=== PATIENT | male | born 1960 | race Caucasian/White ===

== ENCOUNTER 2024-10-14 16:42 | Emergency (ER) | payer MEDICARE, OTHER, SELFPAY ==
[2024-10-14] VITALS (9 sets, daily range): BP systolic 143–194; BP diastolic 95–101; PULSE 65–73; RESP 16–20; TEMP 36.6; O2SAT 95–99
--- NOTE | ~2024-10-14 | XR_ITS ---
EXAMINATION: XR chest 2V Exam Date/Time: 10/14/2024 17:40 CDT HISTORY: dizziness Comparison: None. RESULT: Lines, tubes, and devices: Median sternotomy wires. The inferior wire is fractured, without signific ant displacement. Lungs and pleura: No focal consolidation, pleural effusion, or pneumothorax. Hemidiaphragm flattenin g as can be seen with emphysematous change. Cardiomediastinal silhouette: Stable. Other: No acute osseous or upper abdominal finding. IMPRESSION: No acute cardiopulmonary process. Reviewed, dictated and finalized at location K.
--- OUTSIDE RECORDS SUMMARY | 2024-10-14 16:44 | XMS_ITS | Clinical Summary ---
Author Organization [facility] Address [address] [place] [address] Care Team Providers Care Data Programmer Name Role Phone Eduard Chester Primary Care Provide r Eric Garcia MD Unavailable [phone] Nicanor Morris MD Unavailable [phone] Tyler Nicholas MD Unavailable [phone] Allergies Active Allergy Reactions Criticality Noted Date Comments Atorvastatin Other (See comments) Low 06/24/2016 Severe soreness Medications cholecalciferol (VITAMIN D-3) 5,000 unit tabletIndicatio ns:Prevention of Vitamin D Deficiency Take 1 tablet (5,000 Units total) by mouth every morning 7 Active cyanocobalamin (Vitamin B-12) 1,000 mcg tabletIndicatio ns:Prevention of Vitamin B12 Deficiency Take 1 tablet (1,000 mcg total) by mouth every morning 7 Active omeprazole (PriLOSEC) 20 mg capsuleIndicati ons:reflux Take 1 capsule (20 mg total) by mouth every morning Active metoprolol XL (TOPROL-XL) 50 mg extended release tabletIndicatio ns:hypertension Take 1 tablet (50 mg total) by mouth every morning Active coenzyme Q10 200 mg capsuleIndicati ons:supplement Take 1 capsule (200 mg total) by mouth every morning With cinnamon 1000mg Active MAGNESIUM AMINO ACID CHELATE ORALIndications :supplement Take 400 mg by mouth every morning Active ibuprofen 200 mg tab/cap Take 2 tablet/capsule (400 mg total) by mouth every 6 (six) hours as needed for pain Active acetaminophen ER (TYLENOL) 650 mg 8 hr tablet Take 1 tablet (650 mg total) by mouth every 8 (eight) hours as needed for pain or headaches Active loratadine (CLARITIN) 10 mg tabletIndicatio ns:Allergic Rhinitis Take 1 tablet (10 mg total) by mouth every morning Active rosuvastatin (CRESTOR) 10 mg tablet Take 1 tablet (10 mg total) by mouth daily Active aspirin 325 mg tablet Take 1 tablet (325 mg total) by mouth daily Active Active Problems Problem Noted Date Diagnosed Date Gross hematuria 06/20/2021 Prostate cancer 04/06/2021 Cancer Staging:Clinical:Stage IIC(cT2a, cN0, cM0, PSA: 5.5, Grade Group: 3) - Signed by Eric Garcia MD on 04/06/2021 Gastroesophageal reflux disease 04/21/2020 Paroxysmal A-fib 04/21/2020 Atherosclerosis of coronary artery 12/12/2017 Dyslipidemia 12/12/2017 Hyperglycemia 12/12/2017 Vitamin D deficiency 12/12/2017 Essential hypertension 06/26/2016 Hypercholesterolemia 06/26/2016 Resolved Problems Problem Noted Date Diagnosed Date Resolved Date Right inguinal hernia 12/16/20212021 Encounters Date Type Department Care Team Description 07/30/2024 8:00 AM CDT Office Visit [facility] Neuro Muscle [address] [facility] 6th [place] [address] [place] [address] Chucho Leone MD Polyneuropathy, peripheral sensorimotor axonal (Primary Dx) from Last 3 Months Immunizations Immunization Administration Dates Next Due Influenza, Unspecified 01/27/2021 Surgical History Surgery Date Site/Laterality Comments OTHER SURGICAL HISTORY 01/27/2008 - 02/25/2008 heart bypass CORONARY ARTERY BYPASS GRAFT 01/31/2008 COLECTOMY 12/26/2013 - 01/25/2014 CARDIAC CATHETERIZATION COLONOSCOPY HERNIA REPAIR 02/25/2019 - 03/27/2019 inguinal EYE SURGERY BIOPSY prostate ASPIRATION OF ABSCESS HEMATO MA CYST 07/27/2021 N/A PROSTATECTOMY Medical History Medical History Date Comments Hypertension High cholesterol Prostate cancer (HCC) 01/2021 GERD (gastroesophageal reflux disease) Hyperlipidemia Hx of senior care use of blood thinners asa, eliquis Acute detachment of retina resol [place] see surgery Prediabetes Headache especially when not eating Family History Medical History Relation Name Comments Heart attack Maternal Grandfather Anesthesia problems Neg Hx Relation Name Status Comments Father Maternal Grandfather Mother Social History Tobacco Use Types Packs/Day Years Used Date Smoking Tobacco: Never Smokeless Tobacco: Never Tobacco Cessation:Counseling Given: Not Answered Alcohol Use Standard Drinks/Week Comments Yes 0 (1 standard drink = 0.6 oz pur e alcohol) socially Social Connection and Isolation Panel [NHANES] A nswer Date Recorded In a typical week, how many times do you talk on the phone with family, friends, or neighbors? Three times a week 06/23/19 How often do you get togethe r with friends or relatives? Twice a week 06/22/2021 How often do you attend chur ch or amish services? 1 to 4 times per year 06/22/2021 Do you belong to any clubs o r organizations such as tenriism groups, unions, fraternal or athletic groups, or school groups? No 06/22/2021 How often do you attend meet ings of the clubs or organizations you belong to? Never 06/22/2021 Are you , , di vorced, , never , or living with a partner? 06/22/2021 AUDIT-C Answer Date Recorded Q1: How often do you have a drink containing alc ohol? Monthly or less 12/30/2021 Q2: How many drinks containi ng alcohol do you have on a typical day when you are drinking? 1 or 2 12/30/2021 Q3: How often do you have si x or more drinks on one occasion? Never 12/30/2021 Overall Financial Resource Strain (CARDIA) Answe r Date Recorded How hard is it for you to pa y for the very basics like food, housing, medical care, and heating? Not very hard 06/22/2021 Hunger Vital Sign Answer Date Recorded Within the past 12 months, y ou worried that your food would run out before you got the money to buy more. Never true 06/23/19 22 Within the past 12 months, t he food you bought just didn't last and you didn't have money to get more. Never true 06/22/2021 PRAPARE - Transportation Answer Date Re corded In the past 12 months, has l ack of transportation kept you from medical appointments or from getting medications? No 05/27 In the past 12 months, has l ack of transportation kept you from meetings, work, or from getting things needed for daily living? 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 Gender Identity Male 04/28/2021 6:10 AM MEDICAL PROGRAM SPECIALIST Sexual Orientation Not on file Obstetrics History Last Filed Vital Signs Vital Sign Reading Time Taken Comments Blood Pressure 167/94 07/30/2024 8:07 AM CDT Pulse 70 07/30/2024 8:07 AM CDT Temperature 36.4 C (97.5 F) 12/30/2021 11:40 AM CDT Respiratory Rate 18 12/30/2021 2:30 PM CDT Oxygen Saturation 94% 12/30/2021 2:30 PM CDT Inhaled Oxygen Concentration - - Weight 112.5 kg (248 lb) 07/30/2024 8:07 AM CDT Height 193 cm (6' 4) 07/30/2024 8:07 AM CDT Body Mass Index 30.19 07/30/2024 8:07 AM CDT Plan of Treatment Health Maintenance Due Date Last Done Comments Colon Cancer Screening-Colonoscopy 1959 Depression Screening 1959 Hepatitis C Screening 1959 Hepatitis B Screening 1977 Pneumococcal vaccine 65+ (2 of 2 - PCV) 10/14/2020 10/15/2019 Fall Risk Assessment 12/30/2022 12/30/2021 Prostate Cancer Screening-PSA 10/14/2023, 07/14/2021, 04/06/2021 Covid-19 Vaccine ( - 2023-2 5 season) 2023 01/27/2021, 06/01/2020, 05/11/2020 Well Visit 65+ 2024 Influenza Vaccine (Season Ended) 2024 04/25/2023, 02/24/2022, 01/27/2021, Additional history exists DTaP/Tdap/Td Vaccine (2 - Td or Tdap) 10/14/2029 10/15/2019 Zoster Vaccine Completed 09/06/2020, 03/11/2020 Medical Devices Implanted Type Area Toll Test Worker Device Identifier Shelf Expiration Date Model / Serial / Lot [employer]/C R Bard 6x3in Large Pore Knit Monofilament Smooth [place] [id number] - Sn/A - [id number] Implanted:Qty: 1 on 12/30/2021 by Lorin Longoria MD at [facility] Mesh Right: Inguinal [employer]/C R Bard [id number] 03/24/2026 [id number] / N/A / [id number] Wires Sternum Procedures Procedure Name Priority Date/Time Associated Diagnosis Comments PSA DIAGNOSTIC Routine 10/13/2021 8:59 AM CDT Malignant neoplasm of prostate (HCC) from Last 3 Months or Most Recently Relevant to Health Maintenance Results * PSA diagnostic (10/13/2021 8:59 AM CDT) PSA-Total <0.10 <=5.40 ng/mL [facility]IA [facility] Comment: Interpretive Data AGE SEX REFERENCE INTERVAL 0 minutes-150 years Female None 0 minutes-49 years Male None 50-59 years Male 0-3.90 60-69 years Male 0-5.40 70-79 years Male 0-6.20 80-150 years Male 0-6.20 The Abhijit PSA Total assay procedure was used. Results from different manufacturers or methods may not be comparable. Serial testing should be performed using the same method. Current interpretive data last revised 21. Blood 10/13/2021 8:59 AM CDT 10/13/2021 9:21 AM CDT us Tyler Nicholas MD LAB BLOOD ORDERABLES Final Resu lt [facility] [address] [facility] [address] from Last 3 Months or Most Recently Relevant to Health Maintenance Insurance MEDICARE [facility] CHOICE PRF PPO [place] [facility] Advance Directives For more information, please contact: [phone] Documents on File Type Date Recorded Patient Field Software Engineer Expl anation ADVANCE DIRECTIVE 01/17/2014 12:00 AM [facility] ER OF ANALYTICAL STRATEGIST FINANCIAL/MEDICAL * Full Code (Latest Code Status on File) Date Activated Date Inactivated Comments 12/30/2021 11:13 AM 12/30/2021 7:23 PM * Full Code Date Activated Date Inactivated Comments 06/20/2021 7:57 PM 06/22/2021 8:48 PM * Full Code Date Activated Date Inactivated Comments 06/08/2021 1:51 PM 06/09/2021 5:56 PM Care Teams Data Programmer Relationship Specialty Start Date End Date Eduard Chester DO [facility] [place] [address] PCP - General Family Medicine 02/26/21 Eric Garcia MD [address] [place] [address] Radiation Oncologist Radiation Oncology 04/06/21 Nicanor Morris MD [address] [address] Referring Physician Cardiovascular Disease 04/20/21 Tyler Nicholas MD [address] [address] Consulting Physician Urology 06/22/21
--- OUTSIDE RECORDS SUMMARY | 2024-10-14 16:44 | XMS_ITS ---
Author Organization [facility] Address [address] [place] [address] Care Team Providers Care Spare Person Name Role Phone Eduard Chester DO Primary Care Provide r Eric Garcia MD Unavailable [phone] Nicanor Morris MD Unavailable [phone] Tyler Nicholas MD Unavailable [phone] Active Problems Problem Noted Date Diagnosed Date Gross hematuria 06/20/2021 Prostate cancer 04/06/2021 Cancer Staging:Clinical:Stage IIC(cT2a, cN0, cM0, PSA: 5.5, Grade Group: 3) - Signed by Eric Garcia MD on 04/06/2021 Gastroesophageal reflux disease 04/21/2020 Paroxysmal A-fib 04/21/2020 Atherosclerosis of coronary artery 12/12/2017 Dyslipidemia 12/12/2017 Hyperglycemia 12/12/2017 Vitamin D deficiency 12/12/2017 Essential hypertension 06/26/2016 Hypercholesterolemia 06/26/2016 Current Treatment and Therapy Plans No current plan information found. Past Treatment and Therapy Plans No past plan information found. Lifetime Dose Tracking * Chemical Lifetime Dose Automatic Entry Manual Entr y Fluoro Time 0.8 minutes 0.8 minutes 0 minutes Air kerma at the reference point (Ka,r) 246 mGy 2 46 mGy 0 mGy DLP 1,679 mGycm 1,679 mGycm 0 mGycm Resolved Problems Problem Noted Date Diagnosed Date Resolved Date Right inguinal hernia 12/16/20212021
--- OUTSIDE RECORDS SUMMARY | 2024-10-14 16:44 | XMS_ITS | Referral Summary ---
Author Organization [facility] Address [address] [place] [address] Care Team Providers Care Associate Attorney Name Role Phone Eduard Chester Primary Care Provide r Eric Garcia MD Unavailable [phone] Nicanor Morris MD Unavailable [phone] Tyler Nicholas MD Unavailable [phone] Encounters Date Type Department Care Team Description 07/30/2024 8:00 AM CDT Office Visit [facility] Neuro Muscle [address] [facility] [address]th [place] [address] [place] [address] Chucho Leone MD Polyneuropathy, peripheral sensorimotor axonal (Primary Dx) from Last 3 Months Allergies Active Allergy Reactions Criticality Noted Date [...] Date Resolved Date Right inguinal hernia 12/16/20212021 Immunizations Immunization Administration Dates Next Due Influenza, Unspecified 01/27/2021 Social History Tobacco Use Types Packs/Day Years [...] often do you attend chur ch or hoahaoism services? 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 Gender Identity Male 04/28/2021 6:10 AM SUPERVISOR SLITTING AND SHIPPING Sexual Orientation Not on file Last Filed Vital Signs Vital Sign Reading [...] 07/30/2024 8:07 AM CDT Plan of Treatment Not on file Medical Devices Implanted Type Area Reversing Mill Roller Device Identifier Shelf Expiration Date Model / Serial / Lot [employer]/C R Bard 6x3in Large Pore Knit Monofilament Smooth [place] [id number] - Sn/A - [id number] Implanted:Qty: 1 on 12/30/2021 by Lorin Longoria MD at [facility] Mesh Right: Inguinal [employer]/C R Bard [id number] 03/24/2026 [id number] / N/A / [id number] Wires Sternum Procedures Procedure Name Priority Date/Time Associated Diagnosis Comments PSA DIAGNOSTIC Routine 10/13/2021 8:59 AM CDT Malignant neoplasm of prostate (HCC) from Last 3 Months or Most Recently Relevant to Health Maintenance Results * PSA diagnostic (10/13/2021 8:59 AM CDT) PSA-Total <0.10 <=5.40 ng/mL [facility] Comment: Interpretive Data AGE SEX REFERENCE INTERVAL [...] MD LAB BLOOD ORDERABLES Final Resu lt [facility] [address] [facility] [address] from Last 3 Months or Most Recently Relevant to Health Maintenance Insurance [facility]ICARE [facility] [place] [facility] [facility] CLAIMS [facility] CLAIMS Advance Directives For more information, please contact: [phone] Documents on File Type Date Recorded Patient Boiler Washer Expl anation ADVANCE DIRECTIVE 01/17/2014 12:00 AM [facility] OF OFFSHORE WIND OPERATIONS MANAGER FINANCIAL/MEDICAL * Full Code (Latest Code Status on File) Date Activated Date Inactivated Comments 12/30/2021 11:13 AM 12/30/2021 7:23 PM * Full Code Date Activated Date Inactivated Comments 06/20/2021 7:57 PM 06/22/2021 8:48 PM * Full Code Date Activated Date Inactivated Comments 06/08/2021 1:51 PM 06/09/2021 5:56 PM Care Teams Associate Attorney Relationship Specialty Start Date End Date Eduard Chester DO [address] [place] [address] PCP - General Family Medicine 02/26/21 Eric Garcia MD [address] [place] [address] Radiation Oncologist Radiation Oncology 04/06/21 Nicanor Morris MD [address] [address] Referring Physician Cardiovascular Disease 04/20/21 Tyler Nicholas MD [address] [address] Consulting Physician Urology 06/22/21
--- OUTSIDE RECORDS SUMMARY | 2024-10-14 16:44 | XMS_ITS | Clinical Summary ---
Author Organization [facility] Address [address] [place] [address] Care Team Providers Care Fraternity Adviser Name Role Phone Nicanor Morris MD Unavailable [phone] Eduard Chester DO Primary Care Provider + [facility] Unavailable [phone] Allergies Active Allergy Reactions Criticality Noted Date Comments Atorvastatin Myalgias,Other (see comment) 06/24/2016 Severe soreness Methylprednisolone GI Upset Low 08/31/2024 Bloating, cramping, upset stomach Medications cholecalciferol (VITAMIN D-3) 125 MCG (5000 UT) Tab Take 1 tablet (5,000 Units total) by mouth daily. 06/25/19 17 Active Cinnamon 500 MG Tab Take 1,000 mg by mouth daily. 06/25/19 17 Active vitamin B-12 1000 MCG tablet Take 1 tablet (1,000 mcg total) by mouth daily. 06/25/19 17 Active omeprazole (PRILOSEC) 20 MG capsule Take 1 capsule (20 mg total) by mouth daily. 90 capsule 1 04/25/19 24 Active Turmeric (QC TUMERIC COMPLEX OR) Active magnesium oxide (MAG-OX) 400 (240 Mg) MG tablet Take 1 tablet (400 mg total) by mouth daily. Active metoprolol succinate ER (TOPROL-XL) 50 MG 24 hr tabletIndication s:Essential hypertension TAKE 1 TABLET DAILY 90 tablet 3 03/13/20 24 Active aspirin 325 MG tablet Take 1 tablet (325 mg total) by mouth daily. Active Coenzyme Q10 200 MG Cap Take 200 mg by mouth daily. Active Alpha-Lipoic Acid 600 MG Tab Take 600 mg by mouth daily. Active terbinafine (LAMISIL) 1 % creamIndications :Tinea pedis of right foot Apply topically 2 (two) times daily. Apply for 1-2 weeks 42 g 09/01/19 25 Active rosuvastatin (CRESTOR) 10 MG tabletIndication s:Hypercholester olemia TAKE 1 TABLET DAILY 90 tablet 3 10/10/19 25 Active rosuvastatin (CRESTOR) 10 MG tabletIndication s:Hypercholester olemia TAKE 1 TABLET DAILY 90 tablet 1 04/30/19 25 025 Discontinued Active Problems Problem Noted Date Diagnosed Date History of colon polyps 07/12/2024 Prostate cancer ([facility]) 05/21/2024 Trigger ring finger of right hand 03/07/2024 Chest pain 03/15/2023 Paroxysmal A-fib ([facility]) 04/21/2020 BMI 30.0-30.9,adult 04/21/2020 Gastroesophageal reflux dise ase, unspecified whether esophagitis present 04/21/2020 Hyperglycemia 12/12/2017 Vitamin D deficiency 12/12/2017 Atherosclerosis of coronary artery 12/12/2017 Dyslipidemia 12/12/2017 Hypertension 12/12/2017 Essential hypertension 06/26/2016 Hypercholesterolemia 06/26/2016 CAD (coronary artery disease) Resolved Problems Problem Noted Date Diagnosed Date Resolved Date Screening for colon cancer 07/12/2024 0 07/16/2024 Screening for malignant neoplasm of colon 12/21/2023 12/26/2023 Screening for malignant neoplasm of colon 12/21/2023 06/11/2024 Hiatal hernia 01/15/2019 04/21/2020 Gastroesophageal reflux dise ase with esophagitis 06/19/2018 04/21/2020 Blood in stool 12/12/2017 04/21/2020 Encounters Date Type Department Care Team Description 10/03/2024 9:00 AM CDT Office Visit [facility], [address] [address] Nicanor Morris MD Follow Up 10/03/2024 Travel 08/31/2024 1:40 PM CDT Office Visit [facility] Family & Internal Medicine [address] [address] Eduard Chester, DO Problem (foot) (Patient c/o open sore between R 4th and 5th toes x approx 1 week. Patient states he was recently in [place] and they spent a lot of time walking, believes that may have cause it. Patient has been using medicated bandaids and has soaked in epsom salt baths. Patient states it has improved some but still wanted to get it checked. ) 08/31/2024 Travel 08/13/2024 1:00 PM CDT Office Visit [facility] Family & Internal [address] [address] Vianca Longoria FNP Ear Problem (Patient presenting to the office today for right ear problems, reported clogged, hearing disturbances, . Onset about 1 week - and his gait has been off since yesterday-he was getting concerned ) 08/13/2024 Travel from Last 3 Months Immunizations Immunization Administration Dates Next Due Fluzone 6 Months+ Quad (0.5 mL Prefilled Syringe) 04/25/2023,01/18/2020,01/15/2019 Influenza (Generic) 01/27/2021 Influenza Adult (Generic) 02/24/2022,02/13/2017 Pneumococcal (Pneumovax 23) 10/15/2019 Pneumococcal (Prevnar 20) 04/26/2022 Shingrix 09/06/2020,03/11/2020 Tdap (Adacel) 10/15/2019 Family History Medical History Relation Comments No Known Problems Daughter Alzheimers Father Arthritis Father Diabetes Father Late in life Kidney Disease Father at end of life Heart Disease Maternal Grandfather DC Maternal Grandfather Stroke Maternal Grandmother Heart Disease Mother Stroke Mother Heart Disease Paternal Grandfather No Known Problems Son 1 No Known Problems Son 2 Relation Status Comments Daughter Alive Father (Age 88) of organ failure, alzheimers Maternal Grandfather (Age 71) Maternal Grandmother (Age 99) Mother (Age 85) after min i strokes while on coumadin for many years Paternal Grandfather Son 1 Alive Son 2 Alive Social History Tobacco Use Types Packs/Day Years Used Date Smoking Tobacco: Never Smokeless Tobacco: Never Tobacco Cessation:Counseling Given: No Comments:na Alcohol Use Standard Drinks/Week Comments Not Currently 6.7 (1 standard drink = 0.6 oz p ure alcohol) Socially PHQ-2 Answer Date Recorded Patient Health Questionnaire-2 Score 0 04/06/2024 Sex and Gender Information Value Date Recorded Sex Assigned at Male 05/02/2024 8:27 AM HAND COOPER HELPER Legal Sex Male 8:52 AM CDT Gender Identity Not on file Sexual Orientation Not on file Occupation Industry Job Start Date Job End Date Not on file Not on file Not on file Not on file Last Filed Vital Signs Vital Sign Reading Time Taken Comments Blood Pressure 148/90 10/03/2024 8:43 AM CDT Pulse 69 10/03/2024 8:43 AM CDT Temperature 36.8 C (98.2 F) 08/31/2024 1:45 PM CDT Respiratory Rate 16 08/31/2024 1:45 PM CDT Oxygen Saturation 97% 10/03/2024 8:43 AM CDT Inhaled Oxygen Concentration - - Weight 111.3 kg (245 lb 6.4 oz) 10/03/2024 8:43 AM CDT Height 193 cm (6' 4) 10/03/2024 8:43 AM CDT Body Mass Index 29.87 10/03/2024 8:43 AM CDT Plan of Treatment Upcoming Encounters Date Type Department Care Team (Late st Contact Info) Description 11/12/2024 7:40 AM CDT Laboratory Only [facility] Family & Internal Medicine [address] [address] Eduard Chester DO [address] [place] [address] 11/19/2024 7:00 AM CDT Office Visit [facility] Family & Internal Medicine [facility] [address] [place] [address] Eduard Chester DO [address] [place] [address] 02/07/2025 8:30 AM HAND COOPER HELPER Office Visit [facility], [facility] [address] [place] [address] Camilo Toledo MD Three [facility]. [facility] [address] [place] [address] 03/11/2025 10:00 AM HAND COOPER HELPER Hospital Encounter [facility] [place] [address] Mu Nicholas MD 3 [facility] [address] [place] [address] 03/11/2025 10:00 AM HAND COOPER HELPER - 03/11/2025 10:30 AM HAND COOPER HELPER Surgery [facility] Endo/[place] [address] Mu Nicholas MD 3 [facility] [address] [place] [address] COLONOSCOPY SCREENING 10/07/2025 9:15 AM CDT Office Visit [facility], [facility] [address] [place] [address] Tate Sullivan NP Three [facility] [address] [place] [address] Scheduled Procedures Name Priority Associated Diagnoses Date/Ti me COLONOSCOPY SCREENING Screening for colon cancer History of colon polyps 03/11/2025 10:00 AM HAND COOPER HELPER Health Maintenance Due Date Last Done Comments RSV Immunization or 60+ Years (1 - Risk 60-74 years 1-dose series) 2019 COVID-19 Vaccine (2023-2 5 season) 2025 01/27/2021, 06/01/2020, 05/11/2020 Postponed from 11/27/2023 (Patient Refused) DTaP, Tdap and Td Vaccines ( 2 - Td or Tdap) 10/14/2029 10/15/2019 Colorectal Cancer Screening Colonoscopy (10 Years) 06/18/2034 06/18/2024, 03/28/2013 Zoster Vaccines Completed 09/06/2020, 03/11/2020 Pneumococcal Vaccine: 50+ Years Completed 04/26/2022, 10/15/2019 Hepatitis C Completed 05/14/2022 PHQ-2 (Physician [place]) Completed 04/06/2024 Meningococcal B Vaccine Aged Out No l onger eligible based on patient's age to complete this topic Meningococcal Vaccine Aged Out No shaw shaquille eligible based on patient's age to complete this topic RSV Immunizations Under 20 Months Aged Out No longer eligible b ased on patient's age to complete this topic Goals Goal Patient Goal Type Associated Problems Recent Progress Patient-Stated? Author Autogenera rey Goal Care Plan Autogenerated Problem No Joycelyn Loo [facility] Medical Devices Implanted Type Area Stone Finisher Device Identifier Shelf Expiration Date Model / Serial / Lot Resolution 360 Ultra Clip Implanted:Qty : 1 on 06/18/2024 by Mu Nicholas MD at [facility] Clip Implant N/A: Colon [id number] 12/05/2026 / [id number] / [id number] Description:ASCENDING Mesh Bard Marlex 3 X 6 [id number] - [id number] Implanted:Qty : 1 on 03/05/2019 by Bipin Rocha MD at [facility] Mesh Left: Inguinal [employer] - [employer] 07/24/2023 [id number] / / [id number] Procedures Procedure Name Priority Date/Time Associated Diagnosis Comments HEPATITIS C ANTIBODY Routine 05/14/2022 7:52 AM HAND COOPER HELPER Need for hepatitis C screening test Encounter for preventative adult health care examination COLONOSCOPY Routine 03/28/2013 12:00 AM HAND COOPER HELPER from Last 3 Months or Most Recently Relevant to Health Maintenance Results * HEPATITIS C ANTIBODY (05/14/2022 7:52 AM HAND COOPER HELPER) HEPATITIS C AB NON-REACTI VE NON-REACT FABI 05/14/2022 8:02 PM HAND COOPER HELPER [facility] Comment: ANTIBODIES TO HCV NOT DETECTED. DOES NOT EXCLUDE THE POSSIBILITY OF EXPOSURE TO HCV. 05/14/2022 7:52 AM HAND COOPER HELPER us Eduard Chester DO LABORATORY Final Re sult [facility] [address] [place] [address], [place] [phone] [id number] * Colonoscopy (03/28/2013 12:00 AM HAND COOPER HELPER) 03/28/2013 03/28/2013 Narrative [employer] TO EPIC CONVERSION - 03/28/2013 12:00 AM HAND COOPER HELPER Documented hx of procedure Procedure Note Allen Hilario MD - 01/29/2018 Documented hx of procedure Generic Conversion Md HILARIO GI PROCEDURE ORDERABLES Final Result Performing Organization Address City/[facility] Co de Phone Number [employer] TO EPIC CONVERSION from Last 3 Months or Most Recently Relevant to Health Maintenance Additional Health Concerns Active Problems Noted Date Diagnosed Date Autogenerated Problem 07/12/2024 Insurance [employer] MEDICARE Advance Directives * Full Code (Latest Code Status on File) Date Activated Date Inactivated Comments 04/04/2023 11:31 AM 04/04/2023 5:38 PM * Full Code Date Activated Date Inactivated Comments 03/15/2023 3:37 AM 03/15/2023 7:25 PM * Full Code Date Activated Date Inactivated Comments 02/02/2021 2:23 PM 02/02/2021 5:26 PM Care Teams Fraternity Adviser Relationship Specialty Start Date End Date Eduard Chester DO [address] [place] [address] PCP - General FAMILY PRACTICE 12/26/[address] [facility]. [facility] [address] [place] [address] [place] Secretary Bookkeeper CARDIOVASCULAR DISEASE 06/27/17 Bipin Rocha MD [address] [place] [address] Surgeon SURGERY 02/26/19
--- OUTSIDE RECORDS SUMMARY | 2024-10-14 16:44 | XMS_ITS | Encounter Summary ---
Author Organization [facility] Address [address] [place] [address] Care Team Providers Care Tailor Helper Name Role Phone Nicanor Morris MD Unavailable Eduard Chester DO Primary Care Provider + [facility]available [phone] Encounter Details Date Type Department Care Team (Late Contact Info) Description 06/11/2024 MyChart Message Enc [facility] Family & Internal [address] [address] [facility], [facility] Provider US results Social History Tobacco Use Types Packs/Day Years Used Date Smoking Tobacco: Never Smokeless Tobacco: Never Comments:na Alcohol Use Standard Drinks/Week Comments Not Currently 6.7 (1 standard drink = 0.6 oz p ure alcohol) Socially PHQ-2 Answer Date Recorded Patient Health Questionnaire-2 Score 0 04/06/2024 Sex and Gender Information Value Date Recorded Sex Assigned at Male 05/02/2024 8:27 AM PULP GRINDER AND BLENDER Legal Sex Male 8:52 AM CDT Gender Identity Not on file Sexual Orientation Not on file Occupation Industry Job Start Date Job End Date Not on file Not on file Not on file Not on file documented as of this encounter Plan of Treatment Upcoming Encounters Date Type Department Care Team (Late Contact Info) Description 11/12/2024 7:40 AM CDT Laboratory Only [facility] Family & Internal [address] [place] [address] Eduard Chester, DO [address] [place] [address] 11/19/2024 7:00 AM CDT Office Visit [facility] Family [facility] Medicine [facility] [address] [place] [address] Eduard Chester, DO [address] [place] [address] 02/07/2025 8:30 AM PULP GRINDER AND BLENDER Office Visit [facility] THREE [facility], [facility] [address] [place] [address] Camilo Toledo MD Three [facility]. [facility] [address] [place] [address] 03/11/2025 10:00 AM PULP GRINDER AND BLENDER Hospital Encounter [facility] [address] Mu Nicholas MD [address] [address] 03/11/2025 10:00 AM PULP GRINDER AND BLENDER - 03/11/2025 10:30 AM PULP GRINDER AND BLENDER Surgery [facility] Endo/[place] [address] Mu Nicholas MD 3 [facility] [address] [place] [address] COLONOSCOPY SCREENING 10/07/2025 9:15 AM CDT Office Visit [facility] THREE [facility], [facility] [address] [place] [address] Tate Sullivan, CHANNEL MARKETING PROGRAM MANAGER Three [facility] [address] [place] [address] Scheduled Procedures Name Priority Associated Diagnoses Date/Ti me COLONOSCOPY SCREENING Screening for colon cancer History of colon polyps 03/11/2025 10:00 AM PULP GRINDER AND BLENDER documented as of this encounter Visit Diagnoses Not on filedocumented in this encounter Additional Health Concerns Assessment Noted Time PHQ-9 Depression Total Score: 0 02/24/20 21 9:15 AM PULP GRINDER AND BLENDER documented as of this encounter Care Teams Tailor Helper Relationship Specialty Start Date End Date Eduard Chester DO [address] [place] [address] PCP - General FAMILY PRACTICE 12/26/17 Nicanor Morris MD Three [facility]. [facility] [address] [place] [address] [employer] CARDIOVASCULAR DISEASE 06/27/17 Bipin Rocha MD [address] [place] [address] Surgeon SURGERY 02/26/19 documented as of this encounter
--- OUTSIDE RECORDS SUMMARY | 2024-10-14 16:44 | XMS_ITS | Clinical Summary ---
Author Organization [facility] Address [address] [place] [address] Care Team Providers Care Director Check Name Role Phone Eduard Chester Primary Care Provider + Source Comments [facility],non-owned Affiliates and Associated Physician Practices is amultiple site organization consisting of ambulatory clinics and hospital sitesin [place], [place], [place] and [place]. This disclosure is being madepursuant to the Care Everywhere program and may not contain all information available regarding this patient. Last updated 17.[facility] Allergies No known active allergies Medications * Be aware that medications may not be up to date on this document. Alwaysverify current medications with the patient. metoprolol succinate XL 24hr (TOPROL XL) 25 MG tablet Take 25 mg by mouth once daily Active rosuvastatin (CRESTOR) 40 MG tablet Take 40 mg by mouth once daily Active aspirin (ASPIRIN) 325 MG tablet Take 325 mg by mouth once daily Active Social History Tobacco Use Types Packs/Day Years Used Date Smoking Tobacco: Never Smokeless Tobacco: Never Alcohol Use Standard Drinks/Week Comments Yes 0 (1 standard drink = 0.6 oz pur e alcohol) occasionally AUDIT-C Answer Date Recorded Q1: How often do you have a drink containing alc ohol? 2-4 times a month 10/02/2021 Q2: How many drinks containi ng alcohol do you have on a typical day when you are drinking? 1 or 2 10/02/2021 Q3: How often do you have si x or more drinks on one occasion? Never 10/02/2021 Sex and Gender Information Value Date Recorded Sex Assigned at Not on file Legal Sex Male 9:03 AM CDT Gender Identity Not on file Sexual Orientation Not on file Last Filed Vital Signs Vital Sign Reading Time Taken Comments Blood Pressure 147/88 10/02/2021 11:01 AM CDT Pulse 64 10/02/2021 11:01 AM CDT Temperature 36.8 C (98.2 F) 10/02/2021 11:01 AM CDT Respiratory Rate 16 10/02/2021 11:01 AM CDT Oxygen Saturation 97% 10/02/2021 11:01 AM CDT Inhaled Oxygen Concentration - - Weight 102.1 kg (225 lb) 10/02/2021 9:05 AM CDT Height 193 cm (6' 4) 10/02/2021 9:05 AM CDT Body Mass Index 27.39 10/02/2021 9:05 AM CDT Plan of Treatment Health Maintenance Due Date Last Done Comments COLOGUARD (AGES 45-75) - COLON CA SCREENING 1959 COLON MONITORING 1959 COLONOSCOPY - COLON CA SCREENING 1959 CT COLONOGRAPHY - COLON CA SCREENING 1959 Colorectal Cancer Screening 1959 FIT - COLON CA SCREENING 1959 FLEX SIG - COLON CA SCREENING 1959 HIV SCREENING 1974 HEPATITIS C SCREENING 02/27/1977 DTAP/TDAP/TD VACCINES (1 - Tdap) 1978 PNEUMOCOCCAL VACCINE 50+ (1 of 1 - PCV) 2009 ZOSTER VACCINE (1 of 2) 2009 COVID-19 VACCINE (4 - season) 2023 01/27/2021, 06/01/2020, 05/11/2020 DEPRESSION SCREENING 03/28/2024 INFLUENZA VACCINE (#1) 2024 , 01/18/2020, 01/15/2019, Additional history exists Respiratory Syncytial Virus (RSV) Vaccine Pt: or over 60 yrs (1 - 1-dose 75+ series) 2034 HEPATITIS B VACCINE Aged Out No longe r eligible based on patient's age to complete this topic HIB VACCINE Aged Out No longer eligi ble based on patient's age to complete this topic HPV VACCINE Aged Out No longer eligi ble based on patient's age to complete this topic MENINGOCOCCAL (Group B) VACCINE SHARED DECISION-MAKING Aged Out No longer eligible based on patient's age to complete this topic MENINGOCOCCAL GROUPS A/C/Y/W VACCINE Aged Out No longer eligible based on patient's age to complete this topic Insurance Care Teams Director Check Relationship Specialty Start Date End Date Eduard Chester DO [address] [place] [address] PCP - General Family Medicine Geriatric Medicine 10/02/21
--- OUTSIDE RECORDS SUMMARY | 2024-10-14 16:44 | XMS_ITS | Encounter Summary ---
Author Organization [facility] Address [place] [address] Care Team Providers Care Time Clock Inspector Name Role Phone Nicanor Morris MD Unavailable [phone] Eduard Chester DO Primary Care Provider + [facility] Unavailable [phone] Encounter Details Date Type Department Care Team (Late Contact Info) Description 01/12/2022 [facility] Patient Accounts [address] [place] [address] [facility] Provider Monthly Credit Card Payments Social History Tobacco Use Types Packs/Day Years Used Date Smoking Tobacco: Never Smokeless Tobacco: Never Alcohol Use Standard Drinks/Week Comments Yes 3.3 (1 standard drink = 0.6 oz p ure alcohol) PHQ-2 Answer Date Recorded PHQ-2 Score - If the patient scores above 3, please move on to questions 3-9 0 02/23/2021 Sex and Gender Information Value Date Recorded Sex Assigned at Male 05/02/2024 8:27 AM METAL WIRE TECHNICIAN Legal Sex Male 8:52 AM CDT Gender Identity Not on file Sexual Orientation Not on file Occupation Industry Job Start Date Job End Date Not on file Not on file Not on file Not on file documented as of this encounter Plan of Treatment Upcoming Encounters Date Type Department Care Team (Late Contact Info) Description 11/12/2024 7:40 AM CDT Laboratory Only [facility] Family & Internal Medicine [facility] [address] [place] [address] Eduard Chester, DO [address] [place] [address] 11/19/2024 7:00 AM CDT Office Visit [facility] [address] [place] [address] Eduard Chester, DO [address] [place] [address] 02/07/2025 8:30 AM METAL WIRE TECHNICIAN Office Visit [facility] [address] [place] [address] Camilo Toledo MD Three [facility]. [facility] [address] [place] [address] 03/11/2025 10:00 AM METAL WIRE TECHNICIAN Hospital Encounter [facility] [place] [address] Mu Nicholas MD [address] [address] 03/11/2025 10:00 AM METAL WIRE TECHNICIAN - 03/11/2025 10:30 AM METAL WIRE TECHNICIAN Surgery [facility] Endo/[place] [address] Mu Nicholas MD 3 [facility] [address] [place] [address] COLONOSCOPY SCREENING 10/07/2025 9:15 AM CDT Office [facility], [place] [address] [place] [address] Tate Sullivan, TECHNICAL PROJECT MANAGER Three [facility] [address] [place] [address] Scheduled Procedures Name Priority Associated Diagnoses Date/Ti me COLONOSCOPY SCREENING Screening for colon cancer History of colon polyps 03/11/2025 10:00 AM METAL WIRE TECHNICIAN documented as of this encounter Visit Diagnoses Not on filedocumented in this encounter Additional Health Concerns Assessment Noted Time PHQ-9 Depression Total Score: 0 02/24/20 21 9:15 AM METAL WIRE TECHNICIAN documented as of this encounter Care Teams Time Clock Inspector Relationship Specialty Start Date End Date Eduard Chester DO [address] [place] [id number] PCP - General FAMILY PRACTICE 12/26/17 Nicanor Morris MD Three [facility]. [facility] [address] [place] [address] [place] Event Planner CARDIOVASCULAR DISEASE 06/27/17 Bipin Rocha MD [address] [place] [address] Surgeon SURGERY 02/26/19 documented as of this encounter
--- NOTE | 2024-10-14 17:44 | ECG_ITS ---
Test Date: 2024-10-14 18:02:57 Measurements Intervals [place] Rate: 66 P: 30 HI: 193 QRS: 79 QRSD: 113 T: 31 QT: 397 QTc: 418 Interpretive Statements SINUS RHYTHM WITH OCCASIONAL SUPRAVENTRICULAR PREMATURE COMPLEXES No previous ECG available for comparison Electronically Signed On 10-15-2024 10:50:33 CDT by Arnulfo Clark M.D.
[2024-10-14 18:07] LABS: Hematocrit 41.5 % (42.0-52.0); Hemoglobin 13.9 g/dL (14.0-18.0); Immature Granulocyte Percent A 0.2 % (0-0.5); Lymphocytes Absolute Auto 1.28 K/mm3 (0.9-3.2); Mean Corpuscular HGB Conc 33.5 g/dl (32-36); Mean Corpuscular Hemoglobin 29.0 pg (26-34); Mean Corpuscular Volume 86.6 fl (80-100); Nucleated Red Blood Cells Absolute Auto 0.000 K/mm3 (0.0-0.012); Nucleated Red Blood Cells Perc 0.0 % (0.0-0.2); Platelet Count Result 180 k/mm3 (150-375); Red Blood Count 4.79 M/mm3 (4.6-6.20); White Blood Count 5.7 K/mm3 (4.5-10.0)
[2024-10-14 18:30] LABS: Alanine Aminotransferase 61 U/L (6-50); Albumin Level 4.6 g/dL (3.5-5.1); Alkaline Phosphatase 98 U/L (38-126); Anion Gap 8 mmol/L (4-12); Aspartate Amino Transferase 42 U/L (17-59); Bilirubin,Total 0.5 mg/dL (0.2-1.3); Blood Urea Nitrogen 21 mg/dL (9-20); Calcium 9.1 mg/dL (8.4-10.2); Carbon Dioxide 23 mmol/L (22-30); Chloride 104 mmol/L (98-107); Estimated CRCL calculation 111 ml/min; Estimated Glomerular Filt Rate > 60; Glucose 116 mg/dL (65-110); Potassium 3.7 mmol/L (3.4-5.0); Sodium 135 mmol/L (137-145); Total Protein 7.3 g/dL (6.3-8.2)
--- NOTE | 2024-10-14 19:15 | PC.NURSE ---
Assumed care of patient after receiving bedside report from ROSS Lorenzo @ [phone]
--- OUTSIDE RECORDS SUMMARY | 2024-10-14 19:16 | XMS_ITS | Clinical Summary ---
Author Organization [facility] Address [address] [place] [address] Care Team Providers Care Dry Cleaner Helper Name Role Phone Eduard Chester Primary Care Provide r Eric Garcia MD Unavailable [phone] Nicanor Morris MD Unavailable [phone] Tyler Nicholas MD Unavailable [phone] Allergies Active Allergy Reactions Criticality Noted [...] Description 07/30/2024 8:00 AM CDT Office Visit [facility] Neuro Muscle [address] [facility] 6th [place] [address] [place] [address] Chucho Leone MD Polyneuropathy, peripheral sensorimotor axonal [...] GERD (gastroesophageal reflux disease) Hyperlipidemia Hx of snf use of blood thinners asa, eliquis Acute [...] often do you attend chur ch or denominational services? 1 to 4 times per year 06/22/2021 Do you belong to any clubs o r organizations such as zoroastrian groups, unions, fraternal or athletic groups, or [...] on file Legal Sex Male 12:46 AM TOOL HARDENER Gender Identity Male 04/28/2021 6:10 AM TOOL HARDENER Sexual Orientation Not on file Obstetrics History [...] 09/06/2020, 03/11/2020 Medical Devices Implanted Type Area Hotel Or Motel Cleaning Supervisor Device Identifier Shelf Expiration Date Model / Serial / Lot Davol Inc/C R Bard 6x3in Large Pore Knit Monofilament Smooth [place] [id number] - Sn/A - [id number] Implanted:Qty: 1 on 12/30/2021 by Lorin Longoria MD at [facility] Mesh Right: Inguinal Davol Inc/C R Bard [id number] 03/24/2026 [id number] / N/A / [id number] Wires Sternum Procedures Procedure Name Priority Date/Time [...] LAB BLOOD ORDERABLES Final [facility]u lt [facility] [address] [facility]. Department [place] [address] from Last 3 Months or Most Recently Relevant to Health Maintenance Insurance MEDICARE [facility] Address: [address] [address] [place] [address] [facility] CHOICE [place]F [place] [facility] LIFE [facility] CLAIMS [facility] CLAIMS Advance Directives For more information, please contact: [phone] Documents on File Type Date Recorded Patient Self Propelled Mining Machine Operator Expl anation ADVANCE DIRECTIVE 01/17/2014 12:00 AM [facility] ER OF COMMUNICATIONS TECH FINANCIAL/MEDICAL * Full Code (Latest Code Status on File) Date Activated Date Inactivated Comments 12/30/2021 11:13 AM 12/30/2021 7:23 PM * Full Code Date Activated Date Inactivated Comments 06/20/2021 7:57 PM 06/22/2021 8:48 PM * Full Code Date Activated Date Inactivated Comments 06/08/2021 1:51 PM 06/09/2021 5:56 PM Care Teams Dry Cleaner Helper Relationship Specialty Start Date End Date Eduard Chester DO [facility] [place] [address] PCP - General Family Medicine 02/26/21 Eric Garcia MD [address] [place] [address] Radiation Oncologist Radiation Oncology 04/06/21 Nicanor Morris MD [address] [address] Referring Physician Cardiovascular Disease 04/20/21 Tyler Nicholas MD [address] [address] Consulting Physician Urology 06/22/21
--- OUTSIDE RECORDS SUMMARY | 2024-10-14 19:16 | XMS_ITS | Encounter Summary ---
Author Organization [facility] Address [address] [place] [address] Care Team Providers Care Linen Aide Name Role Phone Nicanor Morris MD Unavailable [phone] Eduard Chester DO Primary Care Provider + [facility] Center[facility] MD Unavailable [phone] Encounter Details Date Type Department Care Team (Late Contact Info) Description 06/11/2024 MyChart Message Enc [facility] Family & Internal [address] [address] [facility] Provider US results Social History Tobacco Use Types Packs/Day Years Used Date Smoking Tobacco: Never Smokeless Tobacco: Never Comments:na Alcohol Use Standard Drinks/Week Comments Not Currently 6.7 (1 standard drink = 0.6 oz p ure alcohol) Socially PHQ-2 Answer Date Recorded Patient Health Questionnaire-2 Score 0 04/06/2024 Sex and Gender Information Value Date Recorded Sex Assigned at Male 05/02/2024 8:27 AM CONSULTING SOLUTION MANAGER Legal Sex Male 8:52 AM CDT Gender Identity Not on file Sexual Orientation Not on file Occupation Industry Job Start Date Job End Date Not on file Not on file Not on file Not on file documented as of this encounter Plan of Treatment Upcoming Encounters Date Type Department Care Team (Late Contact Info) Description 11/12/2024 7:40 AM CDT Laboratory Only [facility] Family & Internal [address] [place] [address] Eduard Chester, DO [address] [place] [address] 11/19/2024 7:00 AM CDT Office Visit [facility] Family [facility] Internal Medicine [facility] [address] [place] [address] Eduard Chester, DO [address] [place] [address] 02/07/2025 8:30 AM CONSULTING SOLUTION MANAGER Office Visit [facility] THREE [facility], [facility] [address] [place] [address] Camilo Toledo MD Three [facility]. [facility] [address] [place] [address] 03/11/2025 10:00 AM CONSULTING SOLUTION MANAGER Hospital Encounter [facility] [address] Mu Nicholas MD [address] [address] 03/11/2025 10:00 AM CONSULTING SOLUTION MANAGER - 03/11/2025 10:30 AM CONSULTING SOLUTION MANAGER Surgery [facility] Endo/[place] [address] uM Nicholas MD 3 [facility] [address] [place] [address] COLONOSCOPY SCREENING 10/07/2025 9:15 AM CDT Office Visit [facility] THREE [facility], [facility] [address] [place] [address] Tate Sullivan, MEDIA MARKETING SPECIALIST Three [facility] [address] [place] [address] Scheduled Procedures Name Priority Associated Diagnoses Date/Ti me COLONOSCOPY SCREENING Screening for colon cancer History of colon polyps 03/11/2025 10:00 AM CONSULTING SOLUTION MANAGER documented as of this encounter Visit Diagnoses Not on filedocumented in this encounter Additional Health Concerns Assessment Noted Time PHQ-9 Depression Total Score: 0 02/24/20 21 9:15 AM CONSULTING SOLUTION MANAGER documented as of this encounter Care Teams Linen Aide Relationship Specialty Start Date End Date Eduard Chester DO [address] [place] [address] PCP - General FAMILY PRACTICE 12/26/17 Nicanor Morris MD Three [facility]. [facility] [address] [place] [address] [employer] Commissioner CARDIOVASCULAR DISEASE 06/27/17 Bipin Rocha MD [address] [place] [address] Surgeon SURGERY 02/26/19 documented as of this encounter
--- OUTSIDE RECORDS SUMMARY | 2024-10-14 19:16 | XMS_ITS | Referral Summary ---
Author Organization [facility] Address [address] [place] [address] Care Team Providers Care Rough Rice Grader Name Role Phone Eduard Chester Primary Care Provide r Eric Garcia MD Unavailable [phone] Nicanor Morris MD Unavailable [phone] Tyler Nicholas MD Unavailable [phone] Encounters Date Type Department Care Team Description 07/30/2024 8:00 AM CDT Office Visit [facility] Neuro Muscle [address] [facility] 6th [place] [address] [place] [address] Chucho Leone MD Polyneuropathy, peripheral [...] often do you attend chur ch or jehovah's witness services? 1 to 4 times per year [...] file Legal Sex Male 12:46 AM SUPERVISOR CARTOGRAPHY Gender Identity Male 04/28/2021 6:10 AM SUPERVISOR CARTOGRAPHY Sexual Orientation Not on file Last Filed [...] on file Medical Devices Implanted Type Area Service Counter Cashier Device Identifier Shelf Expiration Date Model / Serial / Lot Davol Inc/C R Bard 6x3in Large Pore Knit Monofilament Smooth [place] [id number] - Sn/A - [id number] Implanted:Qty: 1 on 12/30/2021 by Lorin Longoria MD at [facility] Mesh Right: Inguinal Davol Inc/C R Bard [id number] 03/24/2026 [id number] / N/A / [id number] Wires Sternum Procedures Procedure Name Priority Date/Time Associated Diagnosis Comments PSA DIAGNOSTIC Routine 10/13/2021 8:59 AM CDT Malignant neoplasm of prostate (HCC) from Last 3 Months or Most Recently Relevant to Health Maintenance Results * PSA diagnostic (10/13/2021 8:59 AM CDT) PSA-Total <0.10 <=5.40 ng/mL [facility] Comment: Interpretive Data AGE SEX REFERENCE INTERVAL [...] BLOOD ORDERABLES Final Resu lt [facility] [address] [facility] [place] [address] from Last 3 Months or Most Recently Relevant to Health Maintenance Insurance MEDICARE [facility] EM[facility]ENC[facility] [employer] [facility] CLAIMS [facility] CLAIMS Advance Directives For more information, please contact: [phone] Documents on File Type Date Recorded Patient Coil Tier Expl anation ADVANCE DIRECTIVE 01/17/2014 12:00 AM POW ER OF CONTRACT CONSULTANT FINANCIAL/MEDICAL * Full Code (Latest Code Status on File) Date Activated Date Inactivated Comments 12/30/2021 11:13 AM 12/30/2021 7:23 PM * Full Code Date Activated Date Inactivated Comments 06/20/2021 7:57 PM 06/22/2021 8:48 PM * Full Code Date Activated Date Inactivated Comments 06/08/2021 1:51 PM 06/09/2021 5:56 PM Care Teams Rough Rice Grader Relationship Specialty Start Date End Date Eduard Chester DO [address] [place] [address] PCP - General Family Medicine 02/26/21 Eric Garcia MD [address] [place] [address] Radiation Oncologist Radiation Oncology 04/06/21 Nicanor Morris MD [address] [address] Referring Physician Cardiovascular Disease 04/20/21 Tyler Nicholas MD [address] [address] Consulting Physician Urology 06/22/21
--- OUTSIDE RECORDS SUMMARY | 2024-10-14 19:16 | XMS_ITS | Clinical Summary ---
Author Organization [facility] Address [address] [facility] [place] [address] Care Team Providers Care Building Cleaner Name Role Phone Eduard Chester Primary Care Provider + Source Comments [facility],non-owned Affiliates and Associated Physician Practices is amultiple site organization consisting of ambulatory clinics and hospital sitesin [place], [place], [place] and [place]. This disclosure is being madepursuant to the Care Everywhere program and may not contain all information available regarding this patient. Last updated 17.[facility] Allergies No known active allergies Medications * [...] to complete this topic Insurance Care Teams Building Cleaner Relationship Specialty Start Date End Date Eduard Chester DO [address] [place] [address] PCP - General Family Medicine Geriatric Medicine 10/02/21
--- OUTSIDE RECORDS SUMMARY | 2024-10-14 19:16 | XMS_ITS | Encounter Summary ---
Author Organization [facility] Address [facility] [place] [address] Care Team Providers Care Core Laying Machine Operator Name Role Phone Nicanor Morris MD Unavailable [phone] Eduard Chester DO Primary Care Provider + [facility] Un[facility] [phone] Encounter Details Date Type Department Care Team (Late Contact Info) Description 01/12/[address] [facility] Patient Accounts [address] [place] [address] [facility] Provider Monthly Credit Card Payments Social History [...] Sex Assigned at Male 05/02/2024 8:27 AM RAIL SIGNAL DESIGNER Legal Sex Male 8:52 AM CDT Gender [...] [facility] Family & Internal Medicine [facility] [address] [place] [address] Eduard Chester, DO [address] [place] [address] 11/19/2024 7:00 AM CDT Office Visit [facility] Family Internal [facility] [address] [place] [address] Eduard Chester, DO [address] [place] [address] 02/07/2025 8:30 AM RAIL SIGNAL DESIGNER Office Visit [facility] THREE [facility], [facility] [address] [place] [address] Camilo Toledo MD Three [facility]. [facility] [address] [place] [address] 03/11/2025 10:00 AM RAIL SIGNAL DESIGNER Hospital Encounter [facility] [place] [address] Mu Nicholas MD [address] [address] 03/11/2025 10:00 AM RAIL SIGNAL DESIGNER - 03/11/2025 10:30 AM RAIL SIGNAL DESIGNER Surgery [facility] Endo/[place] [address] Mu Nicholas MD 3 [facility] [address] [place] [address] COLONOSCOPY SCREENING 10/07/2025 9:15 AM CDT Office Visit [place] [facility] THREE [facility], [facility] [address] [place] [address] Tate Sullivan, COSTUMER Three [facility] [address] [place] [address] Scheduled Procedures Name Priority Associated Diagnoses Date/Ti me COLONOSCOPY SCREENING Screening for colon cancer History of colon polyps 03/11/2025 10:00 AM RAIL SIGNAL DESIGNER documented as of this encounter Visit Diagnoses Not on filedocumented in this encounter Additional Health Concerns Assessment Noted Time PHQ-9 Depression Total Score: 0 02/24/20 21 9:15 AM RAIL SIGNAL DESIGNER documented as of this encounter Care Teams Core Laying Machine Operator Relationship Specialty Start Date End Date Eduard Chester DO [address] [place] [address] PCP - General FAMILY PRACTICE 12/26/17 Nicanor Morris MD Three [facility]. [facility] [address] [place] [address] Ulysses Supervisor Underwriting Clerks CARDIOVASCULAR DISEASE 06/27/17 Bipin Rocha MD [address] [place] [address] Surgeon SURGERY 02/26/19 documented as of this encounter
--- OUTSIDE RECORDS SUMMARY | 2024-10-14 19:16 | XMS_ITS | Clinical Summary ---
Author Organization [facility] Address [address] [place] [address] Care Team Providers Care Disaster Response Director Name Role Phone Nicanor Morris MD Unavailable [phone] Eduard Chester DO Primary Care Provider + [facility] Unavailable [phone] Allergies Active Allergy Reactions Criticality Noted [...] History of colon polyps 07/12/2024 Prostate cancer ([facility]) 05/21/2024 Trigger ring finger of right hand 03/07/2024 Chest pain 03/15/2023 Paroxysmal A-fib ([facility]) 04/21/2020 BMI 30.0-30.9,adult 04/21/2020 Gastroesophageal reflux dise [...] 10/03/2024 9:00 AM CDT [facility], [address] [address] Nicanor Morris MD Follow Up 10/03/2024 Travel 08/31/2024 1:40 PM CDT Office Visit [facility] Family & Internal Medicine [address] [address] Eduard Chester, DO Problem (foot) (Patient c/o open sore between R 4th and 5th toes x approx 1 week. Patient states he was recently in [place] and they spent a lot of time walking, believes that may have cause it. Patient has been using medicated bandaids and has soaked in epsom salt baths. Patient states it has improved some but still wanted to get it checked. ) 08/31/2024 Travel 08/13/2024 1:00 PM CDT Office Visit [facility] Family & Internal [address] [address] Vianca Longoria FNP Ear Problem (Patient presenting [...] end of life Heart Disease Maternal Grandfather GA Maternal Grandfather Stroke Maternal Grandmother Heart Disease [...] Sex Assigned at Male 05/02/2024 8:27 AM FREIGHT DELIVERY DRIVER Legal Sex Male 8:52 AM CDT Gender [...] Description 11/12/2024 7:40 AM CDT Laboratory Only [facility] Family & Internal Medicine [address] [address] Eduard Chester DO [address] [place] [address] 11/19/2024 7:00 AM CDT Office Visit [facility] Family & Internal Medicine [facility] [address] [place] [address] Eduard Chester DO [address] [place] [address] 02/07/2025 8:30 AM FREIGHT DELIVERY DRIVER Office Visit [place] [facility] THREE [facility] [address] [place] [address] Camilo Toledo MD Three [facility]. [facility] [address] [place] [address] 03/11/2025 10:00 AM FREIGHT DELIVERY DRIVER Hospital Encounter [facility] [place] [address] Mu Nicholas MD 3 [facility] [address] [place] [address] 03/11/2025 10:00 AM FREIGHT DELIVERY DRIVER - 03/11/2025 10:30 AM FREIGHT DELIVERY DRIVER Surgery [facility] Endo/[place] [address] Mu Nicholas MD 3 [facility] [address] [place] [address] COLONOSCOPY SCREENING 10/07/2025 9:15 AM CDT Office Visit [facility] [facility] THREE [facility], [facility] [address] [place] [address] Tate Sullivan NP Three [facility] [address] [place] [address] Scheduled Procedures Name Priority Associated Diagnoses Date/Ti me COLONOSCOPY SCREENING Screening for colon cancer History of colon polyps 03/11/2025 10:00 AM FREIGHT DELIVERY DRIVER Health Maintenance Due Date Last Done Comments [...] 10/15/2019 Hepatitis C Completed 05/14/2022 PHQ-2 (Physician [place]) Completed 04/06/2024 Meningococcal B Vaccine Aged Out [...] Care Plan Autogenerated Problem No Joycelyn Loo [facility] Medical Devices Implanted Type Area Pourer Off Device Identifier Shelf Expiration Date Model / Serial / Lot Resolution 360 Ultra Clip Implanted:Qty : 1 on 06/18/2024 by Mu Nicholas MD at [facility] Clip Implant N/A: Colon [id number] 12/05/2026 / [id number] / [id number] Description:ASCENDING Mesh Bard Marlex 3 X 6 [id number] - [id number] Implanted:Qty : 1 on 03/05/2019 by Bipin Rocha MD at [facility] Mesh Left: Inguinal DAVOL INC - DIV C R BARD INC 07/24/2023 [id number] / / [id number] Procedures Procedure Name Priority Date/Time Associated Diagnosis Comments HEPATITIS C ANTIBODY Routine 05/14/2022 7:52 AM FREIGHT DELIVERY DRIVER Need for hepatitis C screening test Encounter for preventative adult health care examination COLONOSCOPY Routine 03/28/2013 12:00 AM FREIGHT DELIVERY DRIVER from Last 3 Months or Most Recently Relevant to Health Maintenance Results * HEPATITIS C ANTIBODY (05/14/2022 7:52 AM FREIGHT DELIVERY DRIVER) HEPATITIS C AB NON-REACTI VE NON-REACT FABI 05/14/2022 8:02 PM FREIGHT DELIVERY DRIVER [facility] Comment: ANTIBODIES TO HCV NOT DETECTED. DOES NOT EXCLUDE THE POSSIBILITY OF EXPOSURE TO HCV. 05/14/2022 7:52 AM FREIGHT DELIVERY DRIVER us Eduard Chester DO LABORATORY Final Re sult [facility] [address] [place] [address], [place] [phone] [id number] * Colonoscopy (03/28/2013 12:00 AM FREIGHT DELIVERY DRIVER) 03/28/2013 03/28/2013 Narrative [facility] TO EPIC CONVERSION - 03/28/2013 12:00 AM FREIGHT DELIVERY DRIVER Documented hx of procedure Procedure Note Allen Hilario MD - 01/29/2018 Documented hx of procedure Generic Conversion Md [facility]IL[facility] GI PROCEDURE ORDERABLES Final Result Performing Organization Address City[facility] Co de Phone Number [facility] TO EPIC CONVERSION from Last 3 Months or Most Recently Relevant to Health Maintenance Additional Health Concerns Active Problems Noted Date Diagnosed Date Autogenerated Problem 07/12/2024 Insurance [employer] MEDICARE Advance Directives * Full Code (Latest Code Status on File) Date Activated Date Inactivated Comments 04/04/2023 11:31 AM 04/04/2023 5:38 PM * Full Code Date Activated Date Inactivated Comments 03/15/2023 3:37 AM 03/15/2023 7:25 PM * Full Code Date Activated Date Inactivated Comments 02/02/2021 2:23 PM 02/02/2021 5:26 PM Care Teams Disaster Response Director Relationship Specialty Start Date End Date Eduard Chester DO [address] [place] [address] PCP - General FAMILY PRACTICE 12/26/17 Nicanor Morris MD [facility]. [facility] [address] [place] [address] [place] Dental Instrument Maker CARDIOVASCULAR DISEASE 06/27/17 Bipin Rocha MD [address] [place] [address] Surgeon SURGERY 02/26/19
--- OUTSIDE RECORDS SUMMARY | 2024-10-14 19:16 | XMS_ITS ---
Author Organization [facility] Address [address] [place] [address] Care Team Providers Care Consulting It Architect Name Role Phone Eduard Chester DO Primary Care Provide r Eric Garcia MD Unavailable [phone] Nicanor Morris MD Unavailable Tyler Nicholas MD Unavailable [phone] Active Problems Problem Noted Date Diagnosed [...]
[2024-10-14] MEDS: CIPROFLOXACIN HCL 0.3% OP SOLN 2.5 ML BTL 2 DROP RIGHT EAR (19:57)
--- NOTE | 2024-10-14 19:59 | ED_ITS ---
HPI - Dizziness General Chief Complaint: Dizziness Stated Complaint: not feeling well, BP high Time Seen by Provider: 10/14/24 19:03 History of Present Illness HPI Narrative: 64-year-old male presenting to the emergency department for right ear pain and muffled hearing. Patient also started feeling some disequilibrium and feeling off balance since he went to a concert on . He states that he had some trouble hearing throughout the concert and had a symptoms start then and have been intermittent since then. Also endorses feeling like his blood pressures were elevated at home. Has a history of hypertension and takes metoprolol. Presents to the ER for evaluation. Denies any chest pain, chest pressure, neck pain, neck pressure. No abdominal pain, back pain, fever, chills. No trauma or injury. She was otherwise in his normal state of health. No history of any ENT procedures in the past. Related Data Allergies Allergy/AdvReac Type Severity Reaction Status Date / Time No Known Allergies Allergy Verified 10/14/24 19:57 Review of Systems 2 Review of Systems: As reviewed above in HPI Exam 2 Narrative: GENERAL: [Well-appearing, well-nourished, and in no acute distress.] HEAD: [Normocephalic, atraumatic.] EYES: [PERRLA and EOMI.] ENT: Right tympanic membrane has a small perforation the superior aspect, no bulging or purulent drainage, no significant redness. Contralateral tympanic membrane is clear without any signs of rupture or drainage. No mastoid tenderness or bulging of the ear. NECK: Supple. CHEST: [Clear to auscultation. No respiratory distress.] HEART: [Regular rate and rhythm]. No murmur heard. [Normal peripheral pulses.] ABDOMEN: [Soft, nondistended], [nontender], [No rigidity or guarding] EXTREMITIES: Normal range of motion. [No edema.] SKIN: Warm, dry, no rash. NEURO: [No focal deficits]. Alert and oriented [x3.] PSYCH: [Normal mood and affect.] Course Vital Signs Vital signs: Vital Signs Temperature 36.6 C 10/14/24 17:04 Pulse Rate 73 10/14/24 17:04 Respiratory Rate 16 10/14/24 17:04 Blood Pressure 185/95 H 10/14/24 17:04 Pulse Oximetry 99 10/14/24 17:04 Oxygen Delivery Room Air 10/14/24 17:04 Temperature 36.6 C 10/14/24 17:04 Pulse Rate 66 10/14/24 19:15 Respiratory Rate 20 10/14/24 19:15 Blood Pressure 156/97 H 10/14/24 19:15 Pulse Oximetry 96 10/14/24 19:15 Oxygen Delivery Room Air 10/14/24 18:08 MDM - Dizziness MDM Narrative Medical decision making narrative: 64-year-old male presenting to the emergency department for right ear pain and muffled hearing. Patient also started feeling some disequilibrium and feeling off balance since he went to a concert on . He states that he had some trouble hearing throughout the concert and had a symptoms start then and have been intermittent since then. Also endorses feeling like his blood pressures were elevated at home. Has a history of hypertension and takes metoprolol. Presents to the ER for evaluation. Denies any chest pain, chest pressure, neck pain, neck pressure. No abdominal pain, back pain, fever, chills. No trauma or injury. She was otherwise in his normal state of health. No history of any ENT procedures in the past. Right tympanic membrane has a small perforation the superior aspect, no bulging or purulent drainage, no significant redness. Contralateral tympanic membrane is clear without any signs of rupture or drainage. No mastoid tenderness or bulging of the ear. Patient is mildly hypertensive urine triaged 185/94 but this came down 156/94 without any interventions. Patient states he has a history of white coat hypertension as well. No other vital anomalies such as fever, tachycardia, tachypnea or hypoxia. Blood work was obtained including CBC, CMP, EKG and chest x-ray to make sure that there is no cardiac pathology here with his elevated blood pressures or any signs of end-organ damage. Patient is asymptomatic aside from his ear complaints which is easily explained by his small tympanic membrane perforation. He was given dexamethasone the ciprofloxacin ear drops. Workup was unremarkable, no signs of any leukocytosis or anemia. Normal platelet count. Electrolytes are unremarkable, normal BUN and creatinine, normal glucose and unremarkable LFTs. Chest x-ray shows no acute cardiopulmonary process. EKG shows normal sinus rhythm, no significant LVH. No ST segment concerns. Patient is hemodynamically stable, see symptoms will be managed with your drops upon discharge and he was sent prescriptions and referral to ENT. Patient's questions were answered he was given return precautions. Medical Records Attestation: I reviewed the patient's medical records. Lab Data Attestation: I reviewed the patient's lab results. 10/14/24 17:58 10/14/24 17:58 Labs: Lab Results 10/14/24 Range/Units 17:58 WBC 5.7 (4.5-10.0) K/mm3 RBC 4.79 (4.6-6.20) M/mm3 Hgb 13.9 L (14.0-18.0) g/dL Hct 41.5 L (42.0-52.0) % MCV 86.6 (80-100) fl MCH 29.0 (26-34) pg MCHC 33.5 (32-36) g/dl RDW 12.6 (11.5-14.5) % Plt Count 180 (150-375) k/mm3 MPV 10.1 (7.4-10.4) fl Immature Gran % (Auto) 0.2 (0-0.5) % Neut % (Auto) 66.7 (45.5-73.1) % Lymph % (Auto) 22.5 (18.3-44.2) % Braxton % (Auto) 7.9 (2.6-8.5) % Eos % (Auto) 2.3 (0-4.4) % Baso % (Auto) 0.4 (0.2-1.2) % Lymph # (Auto) 1.28 (0.9-3.2) K/mm3 Braxton # (Auto) 0.5 (0.1-0.6) K/mm3 Eos # (Auto) 0.1 (0-0.3) K/mm3 Baso # (Auto) 0.0 (0.0-0.1) K/mm3 Abs Immat Gran (auto) 0.01 (0.00-0.031) K/mm3 Absolute Neuts (auto) 3.8 (1.3-6.7) K/mm3 Absolute Nucleated RBC 0.000 (0.0-0.012) K/mm3 Nucleated RBC % 0.0 (0.0-0.2) % Sodium 135 L (137-145) mmol/L Potassium 3.7 (3.4-5.0) mmol/L Chloride 104 (98-107) mmol/L Carbon Dioxide 23 (22-30) mmol/L Anion Gap 8 (4-12) mmol/L BUN 21 H (9-20) mg/dL Creatinine 0.70 (0.7-1.3) mg/dL Estim Creat Clear Calc 111 ml/min Estimated GFR > 60 (59 - ) Glucose 116 H (65-110) mg/dL Calcium 9.1 (8.4-10.2) mg/dL Total Bilirubin 0.5 (0.2-1.3) mg/dL AST 42 (17-59) U/L ALT 61 H (6-50) U/L Alkaline Phosphatase 98 (38-126) U/L Total Protein 7.3 (6.3-8.2) g/dL Albumin 4.6 (3.5-5.1) g/dL Discharge Plan Discharge Clinical Impression: Perforated right tympanic membrane on examination, Asymptomatic hypertension Patient Disposition: Home Condition: Stable Instructions: Antibiotic Form, Ruptured Eardrum (ED), Chronic Hypertension (DC) Additional Instructions: Your right tympanic membrane has a small perforation in the superior aspect which is likely causing the majority of your symptoms. We will treat this with a combination of topical anti-inflammatory such as dexamethasone steroid drops and antibiotics for protection. Keep the area free of water and do not forcefully blow your nose or bear down excessively to prevent further damage. Follow-up will be with gear room keeper. Call your regular doctor tomorrow for blood pressure re-evaluation and management with likely starting new antihypertensive. Return with any emergent concerns at any time. Patient Language: [place] Prescriptions: New ciprofloxacin-dexamethasone 0.3-0.1 % drops,suspension 4 drp EACH EAR Q12H 7 Days Qty: 7.5 0RF Follow-up/Referrals: Óscar Mcguire MD [Physician] - 1 Week (Ruptured tympanic membrane) Henrik,DO Eduard [Primary Care Provider] - Time of Disposition: 19:45
== END 2024-10-14 20:08 | disposition home or self-care (01) ==
PROVIDERS: Emergency Medicine; Emergency Provider Student in an Organized Health Care Education/Training Program; PCP Student in an Organized Health Care Education/Training Program
DX: H72.91 Unspecified perforation of tympanic membrane, right ear (principal); I10 Essential (primary) hypertension; Z79.899 Other long term (current) drug therapy; I49.1 Atrial premature depolarization
CPT/HCPCS: 36415; 71046; 80053; 85025; 93005; 99284; A9270

== ENCOUNTER 2024-11-09 09:42 | Outpatient (CLI) | payer MEDICARE, OTHER, SELFPAY ==
--- OUTSIDE RECORDS SUMMARY | 2024-11-09 09:45 | XMS_ITS ---
Author Organization [facility] Address [address] [place] [address] Care Team Providers Care Street Light Repairer Name Role Phone Eduard Chester DO Primary Care Provide r Eric Garcia MD Unavailable [phone] Nicanor Morris MD Unavailable Tyler Nicholas MD Unavailable [phone] Active Problems Problem Noted Date Diagnosed [...]
--- OUTSIDE RECORDS SUMMARY | 2024-11-09 09:46 | XMS_ITS | Clinical Summary ---
Author Organization [facility] [employer] Address [address] [facility] [place] [address] Care Team Providers Care Homicide Squad Commanding Officer Name Role Phone Eduard Chester Primary Care Provider + Source Comments [facility] [employer],non-owned Affiliates and Associated Physician Practices is amultiple site organization consisting of ambulatory clinics and hospital sitesin [place], [place], [place] and [place]. This disclosure is being madepursuant to the Care Everywhere program and may not contain all information available regarding this patient. Last updated 17.[facility] [employer] Allergies No known active allergies Medications * [...] to complete this topic Insurance Care Teams Homicide Squad Commanding Officer Relationship Specialty Start Date End Date Eduard Chester DO [address] [place] [id number] PCP - General Family Medicine Geriatric Medicine 10/02/21
--- OUTSIDE RECORDS SUMMARY | 2024-11-09 09:46 | XMS_ITS | Clinical Summary ---
Author Organization [facility] Address [address] [place] [address] Care Team Providers Care Rodent Exterminator Name Role Phone Eduard Chester Primary Care Provide r Eric Garcia MD Unavailable [phone] Nicanor Morris MD Unavailable [phone] Tyler Nicholas MD Unavailable [phone] Allergies Active Allergy Reactions Criticality Noted [...] GERD (gastroesophageal reflux disease) Hyperlipidemia Hx of fdc use of blood thinners asa, eliquis Acute [...] alcohol) socially Social Connection and Isolation Panel Answer Date Recorded In a typical week, how many times do you talk on the phone with family, friends, or neighbors? Three times a week 06/23/19 How often do you get togethe r with friends or relatives? Twice a week 06/22/2021 How often do you attend chur or protestant services? 1 to 4 times per year 06/22/2021 Do you belong to any clubs o r organizations such as christian groups, unions, fraternal or athletic groups, or [...] on file Legal Sex Male 12:46 AM CHIEF CARDIOPULMONARY TECHNOLOGIST Gender Identity Male 04/28/2021 6:10 AM CHIEF CARDIOPULMONARY TECHNOLOGIST Sexual Orientation Not on file Obstetrics History [...] Cancer Screening-PSA 10/14/2023, 07/14/2021, 04/06/2021 Covid-19 Vaccine (2023-2 5 season) 2023 01/27/2021, 06/01/2020, 05/11/2020 Well Visit 65+ 2024 Influenza Vaccine (#1) 2024 , 02/24/2022, 01/27/2021, Additional history exists DTaP/Tdap/Td Vaccine (2 - Td or Tdap) 10/14/2029 10/15/2019 Zoster Vaccine Completed 09/06/2020, 03/11/2020 Medical Devices Implanted Type Area Human Resources Services Specialist Device Identifier Shelf Expiration Date Model / Serial / Lot [employer]/C R Bard 6x3in Large Pore Knit Monofilament Smooth [place] [id number] - Sn/A - [id number] Implanted:Qty: 1 on 12/30/2021 by Lorin Longoria MD at [facility] Mesh Right: Inguinal [employer] Bard [id number] 03/24/2026 [id number] / N/A / [id number] Wires Sternum Procedures Procedure Name Priority Date/Time Associated Diagnosis Comments PSA DIAGNOSTIC Routine 10/13/2021 8:59 AM CDT Malignant neoplasm of prostate (HCC) from Last 3 Months or Most Recently Relevant to Health Maintenance Results * PSA diagnostic (10/13/2021 8:59 AM CDT) PSA-Total <0.10 <=5.40 ng/mL [facility] Comment: Interpretive Data AGE SEX REFERENCE INTERVAL [...] LAB BLOOD ORDERABLES Final Resu lt [facility] [id number] [facility]. Department [place] [address] from Last 3 Months or Most Recently Relevant to Health Maintenance Insurance MEDICARE [facility] CLAIMS BL CHOICE PRF [place] [employer] [facility] CLAIMS [facility] CLAIMS Advance Directives For more information, please contact: [phone] Documents on File Type Date Recorded Patient Public Relations Representative Expl anation ADVANCE DIRECTIVE 01/17/2014 12:00 AM [facility] FIN[employer]CIAL/MEDICAL * Full Code (Latest Code Status on File) Date Activated Date Inactivated Comments 12/30/2021 11:13 AM 12/30/2021 7:23 PM * Full Code Date Activated Date Inactivated Comments 06/20/2021 7:57 PM 06/22/2021 8:48 PM * Full Code Date Activated Date Inactivated Comments 06/08/2021 1:51 PM 06/09/2021 5:56 PM Care Teams Rodent Exterminator Relationship Specialty Start Date End Date Eduard Chester DO [address] [place] [id number] PCP - General Family Medicine 02/26/21 Eric Garcia MD [address] [place] [address] [id number] Radiation Oncologist Radiation Oncology 04/06/21 Nicanor Morris MD [address] [id number] Referring Physician Cardiovascular Disease 04/20/21 Tyler Nicholas MD [address] [address] Consulting Physician Urology 06/22/21
== END 2024-11-09 09:43 | disposition home or self-care (01) ==
LOC: ANHAUDIO 09:42
PROVIDERS: PCP Student in an Organized Health Care Education/Training Program; Visit Provider Otolaryngology
DX: H90.41 Sensorineural hearing loss, unilateral, right ear, with unrestricted hearing on the contralateral side (principal)
CPT/HCPCS: 92557; 92567

== ENCOUNTER 2024-12-04 10:45 | Outpatient (CLI) | payer MEDICARE, OTHER, SELFPAY ==
--- OUTSIDE RECORDS SUMMARY | 2024-12-03 09:40 | XMS_ITS | Encounter Summary ---
Author Organization [facility] Address [address] [place] [address] Care Team Providers Care Manager Integrity Name Role Phone Nicanor Morris MD Unavailable [phone] Eduard Chester DO Primary Care Provider + [facility]available [phone] Reason for Referral * Imaging (Routine) - New Request Specialty Diagnoses / Procedures Referred By Contshahram t Referred To Contact RADIOLOGY Diagnoses Lung nodule seen on imaging study Procedures CT CHEST WO CON Eduard Chester DO [address] [place] [address] Phone: tel: fax: Referral ID Status Reason Start Date Expiration Date V isits Requested Visits Authorized [id number] New Request 12/03/2024 12/04/2025 1 1 Reason for Visit * Reason Comments Hypertension Hyperlipidemia Encounter Details Date Type Department Care Team (Latest Contact Info) Description 12/03/2024 9:40 AM CDT Office Visit [facility] Family & Internal Medicine [facility] [address] [place] [phone] Eduard Chester DO [address] [place] [address] Hypertension; Hyperlipidemia Social History Tobacco Use Types Packs/Day Years Used Date Smoking Tobacco: Never Smokeless Tobacco: Never Comments:na Alcohol Use Standard Drinks/Week Comments Not Currently 6.7 (1 standard drink = 0.6 oz p ure alcohol) Socially PHQ-2 Answer Date Recorded Patient Health Questionnaire-2 Score 0 04/06/2024 Sex and Gender Information Value Date Recorded Sex Assigned at Male 05/02/2024 8:27 AM OCEAN TRANSPORTATION INTERMEDIARY Legal Sex Male 8:52 AM CDT Gender Identity Not on file Sexual Orientation Not on file Occupation Industry Job Start Date Job End Date Not on file Not on file Not on file Not on file documented as of this encounter Last Filed Vital Signs Vital Sign Reading Time Taken Comments Blood Pressure 136/78 12/03/2024 10:25 AM CDT Pulse 79 12/03/2024 9:48 AM CDT Temperature 36.3 C (97.3 F) 12/03/2024 9:48 AM CDT Respiratory Rate 16 12/03/2024 9:48 AM CDT Oxygen Saturation 97% 12/03/2024 9:48 AM CDT Inhaled Oxygen Concentration - - Weight 110.8 kg (244 lb 3.2 oz) 12/03/2024 9:48 AM CDT Height 193 cm (6' 4) 12/03/2024 9:48 AM CDT Body Mass Index 29.72 12/03/2024 9:48 AM CDT documented in this encounter Progress Notes * Eduard Chester, DO - 12/03/2024 9:40 AM CDT Images from the original note were not included. GENERAL OFFICE VISIT Encounter Date: 12/03/2024 Chief Complaint: 64-year-old male presents for Hypertension and Hyperlipidemia HPI: Patient presents for follow-up on HLD. Patient has had HLD for multiple years. Current medications include rosuvastatin. Patient does not need labs drawn today. Pt had recent labs. No visits with results within 20 Day(s) from this visit. Latest known visit with results is: Laboratory Only on 11/12/2024 Component Date Value Ref Range Status HGB A1C 11/12/2024 6.2 4.5 - 6.2 % Final ESTIMATED AVG GLUCOSE 11/12/2024 131 (H) 74 - 106 MG/DL Final PSA 11/12/2024 <0.13 <4.00 NG/ML Final Comment: ASSAY PERFORMED BY [employer] METHODOLOGY USING [employer] REAGENT. PATIENT RESULTS DETERMINED BY ASSAYS FROM DIFFERENT MANUFACTURERS AND/OR BY DIFFERENT METHODS MAY NOT BE COMPARABLE. TSH 11/12/2024 2.254 0.358 - 3.740 uIU/ML Final SODIUM S/P/B 11/12/2024 142 136 - 145 MMOL/L Final POTASSIUM S/P/B 11/12/2024 4.3 3.5 - 5.1 MMOL/L Final CHLORIDE S/P/B 11/12/2024 106 98 - 107 MMOL/L Final CO2 11/12/2024 26.1 21 - 32 MMOL/L Final GLUCOSE 11/12/2024 116 (H) 70 - 99 MG/DL Final BUN 11/12/2024 20 (H) 7 - 18 MG/DL Final CREATININE S/P/B 11/12/2024 0.71 0.70 - 1.30 MG/DL Final CALCIUM S/P/B 11/12/2024 8.6 8.4 - 10.5 MG/DL Final BILIRUBIN TOTAL S/P/B 11/12/2024 0.5 0.2 - 1.0 MG/DL Final ALKALINE PHOSPHATASE S/P/B 11/12/2024 114 45 - 115 U/L Final AST 11/12/2024 27 15 - 37 U/L Final ALT 11/12/2024 55 16 - 63 U/L Final TOTAL PROTEIN S/P/B 11/12/2024 6.2 (L) 6.4 - 8.2 G/DL Final ALBUMIN S/P/B 11/12/2024 3.9 3.4 - 5.0 G/DL Final ANION GAP 11/12/2024 9.9 5 - 15 MMOL/L Final REFERENCE RANGE NOT ESTABLISHED OSMOLALITY (CALC) 11/12/2024 298 MOSM/KG Final REFERENCE RANGE NOT ESTABLISHED GFR ESTIMATE 11/12/2024 >90 >90 ML/MIN/1.73 M2 Final GFR NOTES 11/12/2024 GFR REFERENCES: Final Comment: THE ESTIMATED GFR IS CALCULATED USING THE 2020 CKD-EPI EQUATION. THE FOLLOWING CATEGORIES FOR GRADING RENAL FUNCTION ARE RECOMMENDED BY THE INTERNATIONAL SOCIETY OF NEPHROLOGY (KDIGO 2012 CLINICAL PRACTICE GUIDELINE). G1,NORMAL OR HIGH: >89 ml/min/1.73 m2 G2,MILDLY DECREASED: 60-89 ml/min/1.73 m2 G3A,MILDLY TO MODERATELY DECREASED: 45-59 ml/min/1.73 m2 G3B,MODERATELY TO SEVERELY DECREASED: 30-44 ml/min/1.73 m2 G4,SEVERELY DECREASED: 15-29 ml/min/1.73 m2 G5,KIDNEY FAILURE: <15 ml/min/1.73 m2 WBC 11/12/2024 4.73 4.00 - 10.80 x10'3/uL Final RBC 11/12/2024 4.50 4.50 - 6.10 x10'6/uL Final HGB 11/12/2024 13.0 13.0 - 18.0 G/DL Final HCT 11/12/2024 39.4 37.0 - 52.0 % Final MCV 11/12/2024 87.6 78.0 - 100.0 FL Final MCH 11/12/2024 28.9 27.0 - 31.0 PG Final MCHC 11/12/2024 33.0 33.0 - 36.0 G/DL Final RDW 11/12/2024 12.5 11.5 - 14.5 % Final PLT 11/12/2024 182 150 - 350 x10'3/uL Final MPV 11/12/2024 11.0 (H) 7.4 - 10.4 FL Final DIFFERENTIAL TYPE 11/12/2024 AUTOMATED DIFFERENTIAL Final NEUTROPHILS % 11/12/2024 65.0 % Final LYMPHOCYTES % 11/12/2024 24.9 % Final MONOCYTES % 11/12/2024 7.2 % Final EOSINOPHILS % 11/12/2024 2.3 % Final BASOPHILS % 11/12/2024 0.4 % Final IMMATURE GRANS % 11/12/2024 0.2 % Final ABS. NEUTROPHILS 11/12/2024 3.07 1.60 - 8.30 x10'3/uL Final ABS. LYMPHOCYTES 11/12/2024 1.18 0.80 - 4.70 x10'3/uL Final ABS. MONOCYTES 11/12/2024 0.34 0.00 - 1.50 x10'3/uL Final ABS. EOSINOPHILS 11/12/2024 0.11 0.00 - 0.40 x10'3/uL Final ABS. BASOPHILS 11/12/2024 0.02 0.00 - 0.20 x10'3/uL Final ABS. IMMATURE GRANULOCYTES 11/12/2024 0.01 0.00 - 0.03 x10'3/uL Final CHOLESTEROL 11/12/2024 144 <200 MG/DL Final TRIGLYCERIDES 11/12/2024 206 (H) <150 MG/DL Final HDL 11/12/2024 29 (L) >40 MG/DL Final LDL-C 11/12/2024 74 <100 MG/DL Final VLDL CALCULATION 11/12/2024 41 (H) 5 - 28 MG/DL Final CHOL/HDL RATIO 11/12/2024 5.0 (H) 0.0 - 4.0 Final LDL/HDL 11/12/2024 2.6 (H) 0.41 - 2.13 Final NON HDL CHOLESTEROL 11/12/2024 115 <140 MG/DL Final Ratio of LDL/HDL is not ideal but LDL is controlled. PSA is not detectable. A1c is elevated but notdiabetic. Anemia is no longer present. Patient presents for follow-up on essential hypertension. Current medications include Metoprolol. It is decently well controlled today. Pt came in last month for BP check, at which time it was elevated. No side effects noted from medications. Concurrent conditions include Hyperlipidemia and CAD. Pt continues to have ear issues which he is seeing ENT for this. Pt is still having dizziness and tinnitus issues that have not improved dramatically. Pt has A Fib s/p MAZE procedure 2007. Pt had ablation with Dr. Toledo on 04/04/23. Pt is now on aspirin and metoprolol. He is following with cardiology for this currently, Dr. Morris and Dr. Toledo. Pt is stable with this. Pt needs repeat imaging of CT lung from 2021; an incidental lung nodule was noted then which was likely benign but recommended repeat imaging. Review of Systems Constitutional: Negative for fever. HENT: See HPI Respiratory: Negative for shortness of breath. Cardiovascular: Negative for chest pain. Psychiatric/Behavioral: See HPI Patient Active Problem List Diagnosis CAD (coronary artery disease) Essential hypertension Hypercholesterolemia Hyperglycemia Vitamin D deficiency Atherosclerosis of coronary artery Dyslipidemia Hypertension Paroxysmal A-fib ([facility]/HCC [facility]) BMI 30.0-30.9,adult Gastroesophageal reflux disease, unspecified whether esophagitis present Chest pain Trigger ring finger of right hand Prostate cancer ([facility]/HCC HHS/HCC) History of colon polyps Past Medical History[1] Past Surgical History[2] Family History[3] Social History[4] Immunization History Administered Date(s) Administered Fluzone 6 Months+ Quad (0.5 mL Prefilled Syringe) 01/15/2019, 01/18/2020, 04/25/2023 Influenza (Generic) 01/27/2021 Influenza Adult (Generic) 02/13/2017, 02/24/2022 [employer] COVID-19 (ORIGINAL FORMULATION, PURPLE CAP) mRNA, LNP-S, PF, 30 MCG/0.3 ML DOSE 05/11/2020, 06/01/2020, 01/27/2021 Pneumococcal (Pneumovax 23) 10/15/2019 Pneumococcal (Prevnar 20) 04/26/2022 Shingrix 03/11/2020, 09/06/2020 Tdap (Adacel) 10/15/2019 Current Outpatient Medications Medication Sig Dispense Refill Alpha-Lipoic Acid 600 MG Tab Take 600 mg by mouth daily. aspirin 325 MG tablet Take 1 tablet (325 mg total) by mouth daily. cholecalciferol (VITAMIN D-3) 125 MCG (5000 UT) Tab Take 1 tablet (5,000 Units total) by mouth daily. Cinnamon 500 MG Tab Take 1,000 mg by mouth daily. Coenzyme Q10 200 MG Cap Take 200 mg by mouth daily. magnesium oxide (MAG-OX) 400 (240 Mg) MG tablet Take 1 tablet (400 mg total) by mouth daily. metoprolol succinate ER (TOPROL-XL) 100 MG 24 hr tablet Take 1 tablet (100 mg total) by mouth daily. 90 tablet 3 omeprazole (PRILOSEC) 20 MG capsule Take 1 capsule (20 mg total) by mouth daily. 90 capsule 1 rosuvastatin (CRESTOR) 10 MG tablet TAKE 1 TABLET DAILY 90 tablet 3 Turmeric (QC TUMERIC COMPLEX OR) vitamin B-12 1000 MCG tablet Take 1 tablet (1,000 mcg total) by mouth daily. terbinafine (LAMISIL) 1 % cream Apply topically 2 (two) times daily. Apply for 1-2 weeks (Patient not taking: Reported on 12/03/2024) 42 g 0 No current facility-administered medications for this visit. Review of patient's allergies indicates: Allergen Reactions Atorvastatin Myalgias and Other (see comment) Severe soreness Methylprednisolone GI Upset Bloating, cramping, upset stomach Objective: Filed Vitals: 12/03/24 0948 12/03/24 1025 BP: (!) 142/94 136/78 Pulse: 79 Resp: 16 Temp: 97.3 ??F (36.3 ??C) TempSrc: Skin SpO2: 97% Weight: 110.8 kg (244 lb 3.2 oz) Height: 1.93 m (6' 4) Physical Exam Vitals and nursing note reviewed. HENT: Head: Normocephalic and atraumatic. Right Ear: External ear normal. Left Ear: External ear normal. Eyes: Conjunctiva/sclera: Conjunctivae normal. Cardiovascular: Rate and Rhythm: Normal rate and regular rhythm. Heart sounds: Normal heart sounds. No murmur heard. No friction rub. No gallop. Pulmonary: Effort: Pulmonary effort is normal. No respiratory distress. Breath sounds: Normal breath sounds. No wheezing or rales. Abdominal: Palpations: Abdomen is soft. Tenderness: There is no abdominal tenderness. Neurological: Mental Status: He is alert. Assessment & Plan: Stephan Martinez was seen today for hypertension and hyperlipidemia. Diagnoses and all orders for this visit: Primary hypertension - metoprolol succinate ER (TOPROL-XL) 100 MG 24 hr tablet; Take 1 tablet (100 mg total) by mouth daily. Hyperlipidemia, mixed Hyperglycemia Eustachian tube dysfunction, right S/P prostatectomy Tinnitus of right ear BMI 29.0-29.9,adult Lung nodule seen on imaging study - CT CHEST WO CON; Future Discussion/Summary: Recommend lifestyle changes for A1c and elevated cholesterol. Repeat A1c in 6 months. Other labs can be repeated in 1 year. Continue f/u with all specialists. Will order CT chest. Will increase metoprolol as per above. Will have pt f/u in 6 months or sooner if needed. Pt v/u. I personally spent a total of 34 minutes on the day of the encounter. This includes apuo-oa-nmrh and keb-ymsy-zz-face time I provided on the day of the encounter & excludes time spent performing separately reportable services. Eduard Chester DO [1] Past Medical History: Diagnosis Date Anesthesia complication woke up biting at oral airway, also bit inside of lip very hard Arthritis Atrial fibrillation (CMS/HCC HHS/HCC) s/p MAZE 2007 CAD (coronary artery disease) Cancer (CMS/HCC HHS/HCC) Detached retina, right Dyslipidemia Essential hypertension GERD (gastroesophageal reflux disease) Hiatal hernia Inguinal hernia [2] Past Surgical History: Procedure Laterality Date CARDIAC CATHETERIZATION 01/2008 COLON SURGERY 01/08 COLONOSCOPY N/A 06/18/2024 COLONOSCOPY WITH REMOVAL OF ASCENDING POLYPOID MASS VIA HOT SNARE WITH CLIP PLACEMENT X 1 AND TATTOO performed by Mu Nicholas MD at [facility] GI COLONOSCOPY FLX DX W/COLLJ SPEC WHEN PFRMD CORONARY ARTERY BYPASS GRAFT 01/2008 EYE SURGERY 05/20 HAND SURGERY Right 03/30/2024 Ring finger trigger release Dr. Vick HERNIA REPAIR 03/15 KNEE SURGERY Right OTHER PROCEDURE MAZE PROSTATE SURGERY 06/16 REMV PROSTATE,PERINEAL,RADICAL TONSILLECTOMY [3] Family History Problem Relation Name Age of Onset Stroke Mother Mom Heart Disease Mother Mom Alzheimers Father Dad Kidney Disease Father Dad at end of life Diabetes Father Dad Late in life Arthritis Father Dad Stroke Maternal Grandmother Grandma [place] Maternal Grandfather Papa Heart Disease Maternal Grandfather Papa No Known Problems Daughter No Known Problems Son Heart Disease Paternal Grandfather Granddaddy No Known Problems Son [4] Social History Tobacco Use Smoking status: Never Smokeless tobacco: Never Tobacco comments: na Vaping Use Vaping status: Never Used Substance Use Topics Alcohol use: Not Currently Alcohol/week: 6.7 standard drinks of alcohol Comment: Socially Drug use: Never documented in this encounter Plan of Treatment Upcoming Encounters Date Type Department Care Team (Late st Contact Info) Description 02/08/2025 8:45 AM OCEAN TRANSPORTATION INTERMEDIARY Office Visit [facility] THREE [facility], [facility] [address] [place], [place] [phone] Camilo Toledo MD Three [facility]. [facility] [address] [place], [place] [phone] 03/11/2025 10:00 AM OCEAN TRANSPORTATION INTERMEDIARY Hospital Encounter [facility] [address] [facility] [place] [address] Mu Nicholas MD 3 [facility] [address] [place] [address] 03/11/2025 10:00 AM OCEAN TRANSPORTATION INTERMEDIARY - 03/11/2025 10:30 AM OCEAN TRANSPORTATION INTERMEDIARY Surgery [facility] [place]o/[place] [address] Mu Nicholas MD 3 [facility] [address] [place] [address] COLONOSCOPY SCREENING 06/03/2025 7:00 AM CDT Office Visit [facility] Family & Internal Medicine [facility] [address] [place] [address] Eduard Chester, [address] [place] [address] 10/07/2025 9:15 AM CDT Office Visit [facility]-Clarita'F allon [facility] [address] [place] [address] Tate Sullivan, OCCUPATIONAL SAFETY SPECIALIST Three [facility] [address] [place] [address] Scheduled Orders Name Type Priority Associated Diagnoses Orde r Schedule CT CHEST WO CON CT Routine Lung nodule seen on imaging study Expected: 12/03/2024, Expires: 12/03/2025 Scheduled Procedures Name Priority Associated Diagnoses Date/Ti me COLONOSCOPY SCREENING Screening for colon cancer History of colon polyps 03/11/2025 10:00 AM OCEAN TRANSPORTATION INTERMEDIARY documented as of this encounter Goals Goal Patient Goal Type Associated Problems Recent Progress Patient-Stated? Author Autogenera rey Goal Care Plan Autogenerated Problem No Imler, Joycelyn S, EDGE INKER UPPERS documented as of this encounter Visit Diagnoses Diagnosis History of colon polyps Personal history of colonic polyps Primary hypertension- Primary Unspecified essential hypertension Hyperlipidemia, mixed Mixed hyperlipidemia Hyperglycemia Other abnormal glucose Eustachian tube dysfunction, right S/P prostatectomy Other postprocedural status Tinnitus of right ear Unspecified tinnitus BMI 29.0-29.9,adult Body Mass Index 29.0-29.9, adult Lung nodule seen on imaging study Solitary pulmonary nodule Screening for colon cancer Special screening for malignant neoplasms, colon History of colon polyps Personal history of colonic polyps documented in this encounter Additional Health Concerns Active Problems Noted Date Diagnosed Date Autogenerated Problem 07/12/2024 Assessment Noted Time PHQ-9 Depression Total Score: 0 02/24/20 21 9:15 AM OCEAN TRANSPORTATION INTERMEDIARY documented as of this encounter Care Teams Manager Integrity Relationship Specialty Start Date End Date Eduard Chester DO [facility] [place] [address] PCP - General FAMILY PRACTICE 12/26/17 Nicanor Morris MD [address] [address] [place] Folded Cloth Taper CARDIOVASCULAR DISEASE 06/27/17 Bipin Rocha MD [address] [place] [address] Surgeon SURGERY 02/26/19 documented as of this encounter
--- OUTSIDE RECORDS SUMMARY | 2024-12-04 12:31 | XMS_ITS | Encounter Summary ---
Author Organization [facility] Address [address] [place] [address] Care Team Providers Care Infrastructure Software Engineer Name Role Phone Nicanor Morris MD Unavailable [phone] Eduard Chester DO Primary Care Provider [facility] [phone] Reason for Visit * Reason Onset Date Comments Results 12/03/2024 Encounter Details Date Type Department Care Team (Late st Contact Info) Description 12/03/2024 Results Follow-Up [facility] Medical Group Family & Internal Medicine [address] [address] Eduard Chester DO [address] [place] [address] HEMOGLOBIN, GLYCOSYLATED, PROSTATE SPECIFIC ANTIGEN,TOTAL, TSH W/REFLEX, Additional followed-up results: 3 Social History Tobacco Use Types Packs/Day Years Used Date Smoking Tobacco: Never Smokeless Tobacco: Never Comments:na Alcohol Use Standard Drinks/Week Comments Not Currently 6.7 (1 standard drink = 0.6 oz p ure alcohol) Socially PHQ-2 Answer Date Recorded Patient Health Questionnaire-2 Score 0 04/06/2024 Sex and Gender Information Value Date Recorded Sex Assigned at Male 05/02/2024 8:27 AM EDUCATIONAL INSTITUTION CURATOR Legal Sex Male 8:52 AM CDT Gender Identity Not on file Sexual Orientation Not on file Occupation Industry Job Start Date Job End Date Not on file Not on file Not on file Not on file documented as of this encounter Progress Notes * Christi Fournier RN - 12/03/2024 2:30 PM CDT Patient states that he has not been able to exercise due to tinnitus issues. He is wanting to wait another 3-6 months and recheck his levels with his pcp and see what happens then. Patient is getting injections with the ear drums with ENT and is hopeful this will resolve his tinnitus that is causing equilibrium issues. documented in this encounter Plan of Treatment Upcoming Encounters Date Type Department Care Team (Late st Contact Info) Description 02/08/2025 8:45 AM EDUCATIONAL INSTITUTION CURATOR Office Visit [facility]O'F allodestiny THREE [facility], [facility] [address] [place] [address] Camilo Toledo MD [address] [facility] [address] [place] [address] 03/11/2025 10:00 AM EDUCATIONAL INSTITUTION CURATOR Hospital Encounter [facility] ONE [facility] [place] [address] Mu Nicholas MD [address] [facility] [address] [place] [address] 03/11/2025 10:00 AM EDUCATIONAL INSTITUTION CURATOR - 03/11/2025 10:30 AM EDUCATIONAL INSTITUTION CURATOR Surgery [facility] [place] [address] Mu Nicholas MD [address] [facility] [address] [place] [address] COLONOSCOPY SCREENING 06/03/2025 7:00 AM CDT Office Visit [facility] [address] [place] [address] Eduard Chester DO [address] [place] [address] 10/07/2025 9:15 AM CDT Office Visit [facility] [address] [place] [address] Tate Sullivan NP Three [facility] [address] [place] [address] Scheduled Procedures Name Priority Associated Diagnoses Date/Ti me COLONOSCOPY SCREENING Screening for colon cancer History of colon polyps 03/11/2025 10:00 AM EDUCATIONAL INSTITUTION CURATOR documented as of this encounter Goals Goal Patient Goal Type Associated Problems Recent Progress Patient-Stated? Author Autogenera rey Goal Care Plan Autogenerated Problem No Joycelyn Loo [facility] documented as of this encounter Visit Diagnoses Not on filedocumented in this encounter Additional Health Concerns Active Problems Noted Date Diagnosed Date Autogenerated Problem 07/12/2024 Assessment Noted Time PHQ-9 Depression Total Score: 0 02/24/20 9:15 AM EDUCATIONAL INSTITUTION CURATOR documented as of this encounter Care Teams Infrastructure Software Engineer Relationship Specialty [place] [address] [place] [address] PCP - General FAMILY PRACTICE 12/26/17 Nicanor Morris MD [facility] [address] [place] [address] [place] It Support Technician CARDIOVASCULAR DISEASE 06/27/17 Bipin Rocha MD [address] [place] [address] Surgeon SURGERY 02/26/19 documented as of this encounter
--- OUTSIDE RECORDS SUMMARY | 2024-12-04 12:31 | XMS_ITS | Clinical Summary ---
Author Organization [facility] Address [address] [place] [address] Care Team Providers Care Cell Tester Name Role Phone Eduard Chester Primary Care Provide r Eric Garcia MD Unavailable [phone] Nicanor Morris MD Unavailable [phone] Tyler Nicholas MD Unavailable [phone] Allergies Active Allergy Reactions Criticality Noted [...] GERD (gastroesophageal reflux disease) Hyperlipidemia Hx of termite control service representative use of blood thinners asa, eliquis Acute [...] How often do you attend chur or anabaptist services? 1 to 4 times per year 06/22/2021 Do you belong to any clubs o r organizations such as orthodox groups, unions, fraternal or athletic groups, or [...] on file Legal Sex Male 12:46 AM RADIO DIVISION LIEUTENANT Gender Identity Male 04/28/2021 6:10 AM RADIO DIVISION LIEUTENANT Sexual Orientation Not on file Obstetrics History [...] 09/06/2020, 03/11/2020 Medical Devices Implanted Type Area Marine Architect Device Identifier Shelf Expiration Date Model / Serial / Lot [employer]/C R Bard 6x3in Large Pore Knit Monofilament Smooth [place] [id number] - Sn/A - [id number] Implanted:Qty: 1 on 12/30/2021 by Lorin Longoria MD at [facility] Mesh Right: Inguinal [employer] [id number] 03/24/2026 [id number] / N/A / [id number] Wires Sternum Procedures Procedure Name Priority Date/Time [...] BLOOD ORDERABLES Final Resu lt [facility] [address] [facility]. Department [place] [address] from Last 3 Months or Most Recently Relevant to Health Maintenance Insurance MEDICARE [facility] CLAIMS BL CHOICE PRF [place] [facility] CLAIMS [facility] CLAIMS Advance Directives For more information, please contact: [phone] Documents on File Type Date Recorded Patient Heating And Ventilating Drafter Expl anation ADVANCE DIRECTIVE 01/17/2014 12:00 AM [facility] ER OF LITIGATION COUNSEL FINANCIAL/MEDICAL * Full Code (Latest Code Status on File) Date Activated Date Inactivated Comments 12/30/2021 11:13 AM 12/30/2021 7:23 PM * Full Code Date Activated Date Inactivated Comments 06/20/2021 7:57 PM 06/22/2021 8:48 PM * Full Code Date Activated Date Inactivated Comments 06/08/2021 1:51 PM 06/09/2021 5:56 PM Care Teams Cell Tester Relationship Specialty Start Date End Date Eduard Chester DO [address] [place] [address] PCP - General Family Medicine 02/26/21 Eric Garcia MD [address] [place] [id number] Radiation Oncologist Radiation Oncology 04/06/21 Nicanor Morris MD [address] [id number] Referring Physician Cardiovascular Disease 04/20/21 Tyler Nicholas MD [address] [address] Consulting Physician Urology 06/22/21
--- OUTSIDE RECORDS SUMMARY | 2024-12-04 12:31 | XMS_ITS | Encounter Summary ---
Author Organization [facility] Address [address] [place] [address] Care Team Providers Care Technical Programs Manager Name Role Phone Nicanor Morris MD Unavailable [phone] Eduard Chester DO Primary Care Provider + [facility] Unavailable [phone] Encounter Details Date Type Department Care Team (Latest Contact Info) Description 12/03/2024 Travel Social History Tobacco Use Types Packs/Day Years Used Date Smoking Tobacco: Never Smokeless Tobacco: Never Comments:na Alcohol Use Standard Drinks/Week Comments Not Currently 6.7 (1 standard drink = 0.6 oz p ure alcohol) Socially PHQ-2 Answer Date Recorded Patient Health Questionnaire-2 Score 0 04/06/2024 Sex and Gender Information Value Date Recorded Sex Assigned at Male 05/02/2024 8:27 AM TESTING MANAGER Legal Sex Male 8:52 AM CDT Gender Identity Not on file Sexual Orientation Not on file Occupation Industry Job Start Date Job End Date Not on file Not on file Not on file Not on file documented as of this encounter Plan of Treatment Upcoming Encounters Date Type Department Care Team (Late st Contact Info) Description 02/08/2025 8:45 AM TESTING MANAGER Office Visit [facility] [place] [address] [place] [address] Camilo Toledo MD Three [facility]. [place] [address] [place] [address] 03/11/2025 10:00 AM TESTING MANAGER Hospital Encounter [facility] [place] [address] Mu Nicholas MD 3 [facility] [address] [place] [address] 03/11/2025 10:00 AM TESTING MANAGER - 03/11/2025 10:30 AM TESTING MANAGER Surgery [facility] Endo/[place] [address] Mu Nicholas MD 3 [facility] [address] [place] [address] COLONOSCOPY SCREENING 06/03/2025 7:00 AM CDT Office Visit [facility] Medical Group Family & Internal Medicine [address] [place] [address] Eduard Chester DO [address] [place] [address] 10/07/2025 9:15 AM CDT Office Visit [facility] THREE [facility] [address] [place] [address] Tate Sullivan NP Three [facility] [address] [place] [address] Scheduled Procedures Name Priority Associated Diagnoses Date/Ti me COLONOSCOPY SCREENING Screening for colon cancer History of colon polyps 03/11/2025 10:00 AM TESTING MANAGER documented as of this encounter Goals Goal [...] Total Score: 0 02/24/20 21 9:15 AM TESTING MANAGER documented as of this encounter Care Teams Technical Programs Manager Relationship Specialty Start Date End Date Eduard Chester DO [address] [place] [address] PCP - General FAMILY PRACTICE 12/26/17 Nicanor Morris MD [facility] [address] [place] [address] [place] [employer] CARDIOVASCULAR DISEASE 06/27/17 Bipin Rocha MD [facility] [place] [address] Surgeon SURGERY 02/26/19 documented as of this encounter
--- OUTSIDE RECORDS SUMMARY | 2024-12-04 12:31 | XMS_ITS ---
Author Organization [facility] Address [address] [place] [address] Care Team Providers Care Computer Network Engineer Name Role Phone Eduard Chester DO Primary Care Provide r Eric Garcia MD Unavailable [phone] Nicanor Morris MD Unavailable Tyler Nicholas MD Unavailable [phone] Active Problems Problem Noted Date Diagnosed [...]
--- OUTSIDE RECORDS SUMMARY | 2024-12-04 12:31 | XMS_ITS | Encounter Summary ---
Author Organization [facility] Address [facility] [place] [address] Care Team Providers Care Pharmacy Analyst Name Role Phone Nicanor Morris MD Unavailable Eduard Chester DO Primary Care Provider + [facility] Unavailable [phone] Encounter Details Date Type Department Care Team (Late st Contact Info) Description 01/12/2022 [facility] Patient Accounts [address] [place] [address] [facility] Provider Monthly Credit Card Payments Social History [...] Sex Assigned at Male 05/02/2024 8:27 AM SUPERVISOR FIBERGLASS BOAT ASSEMBLY Legal Sex Male 8:52 AM CDT Gender Identity Not on file Sexual Orientation Not on file Occupation Industry Job Start Date Job End Date Not on file Not on file Not on file Not on file documented as of this encounter Plan of Treatment Upcoming Encounters Date Type Department Care Team (Late st Contact Info) Description 02/08/2025 8:45 AM SUPERVISOR F[employer]ER[employer] BOAT ASSEMBLY Office Visit [facility] [address], [facility] [address] [place] [address] Camilo Toledo MD Three [facility]. [facility] [address] [place] [address] 03/11/2025 10:00 AM SUPERVISOR FIBERGLASS BOAT ASSEMBLY Hospital Encounter [facility] [place] [address] Mu Nicholas MD 3 [facility] [address] [place] [address] 03/11/2025 10:00 AM SUPERVISOR F[employer]ERGL[employer]AT ASSEMBLY - 03/11/2025 10:30 AM SUPERVISOR F[employer]ER[employer]AT ASSEMBLY Surgery [facility] [place]o/[place] [address] Mu Nicholas MD 3 [facility] [address] [place] [address] COLONOSCOPY SCREENING 06/03/2025 7:00 AM CDT Office Visit [facility] Medical Group Family & Internal Medicine - [address] [address] Eduard Chester, [address] [place] [address] 10/07/2025 9:15 AM CDT Office Visit [facility] THREE [facility], [facility] [address] [place] [address] Tate Sullivan, LIZA Three [facility] [address] [place] [address] Scheduled Procedures Name Priority Associated Diagnoses Date/Ti me COLONOSCOPY SCREENING Screening for colon cancer History of colon polyps 03/11/2025 10:00 AM SUPERVISOR [employer]SEMBLY documented as of this encounter Visit Diagnoses Not on filedocumented in this encounter Additional Health Concerns Assessment Noted Time PHQ-9 Depression Total Score: 0 02/24/20 21 9:15 AM SUPERVISOR [employer]ER[employer] ASSEMBLY documented as of this encounter Care Teams Pharmacy Analyst Relationship Specialty Start Date End Date Eduard Chester DO [address] [place] [address] PCP - General FAMILY PRACTICE 12/26/17 Nicanor Morris MD [address] [place] [address] [employer] CARDIOVASCULAR DISEASE 06/27/17 Bipin Rocha MD [address] [place] [address] Surgeon SURGERY 02/26/19 documented as of this encounter
--- OUTSIDE RECORDS SUMMARY | 2024-12-04 12:31 | XMS_ITS | Encounter Summary ---
Author Organization [facility] Address [address] [place] [address] Care Team Providers Care Mallet And Die Cutter Name Role Phone Nicanor Morris MD Unavailable [phone] Eduard Chester DO Primary Care Provider + [facility] Unavailable Encounter Details Date Type Department Care Team (Late st Contact Info) Description 06/11/2024 MyChart Message Enc [facility] Medical Group Family & Internal Medicine [address] [address] [facility] Provider US results Social History Tobacco Use Types Packs/Day Years Used Date Smoking Tobacco: Never Smokeless Tobacco: Never Comments:na Alcohol Use Standard Drinks/Week Comments Not Currently 6.7 (1 standard drink = 0.6 oz p ure alcohol) Socially PHQ-2 Answer Date Recorded Patient Health Questionnaire-2 Score 0 04/06/2024 Sex and Gender Information Value Date Recorded Sex Assigned at Male 05/02/2024 8:27 AM ACCESS DIRECTOR Legal Sex Male 8:52 AM CDT Gender Identity Not on file Sexual Orientation Not on file Occupation Industry Job Start Date Job End Date Not on file Not on file Not on file Not on file documented as of this encounter Plan of Treatment Upcoming Encounters Date Type Department Care Team (Late Contact Info) Description 02/08/2025 8:45 AM ACCESS DIRECTOR Office Visit [facility] THREE [facility] [address] [place] [address] Camilo Toledo MD Three [facility]. [facility] [address] [place] [address] 03/11/2025 10:00 AM ACCESS DIRECTOR Hospital Encounter [facility] One Day Services [facility] [place] [address] Mu Nicholas MD 3 [facility] [address] [place] [address] 03/11/2025 10:00 AM ACCESS DIRECTOR - 03/11/2025 10:30 AM ACCESS DIRECTOR Surgery [facility] Endo/[place] [address] Mu Nicholas MD 3 [facility] [address] [place] [address] COLONOSCOPY SCREENING 06/03/2025 7:00 AM CDT Office Visit [facility] Medical Group Family & Internal Medicine [address] [address] Eduard Chester, [address] [place] [address] 10/07/2025 9:15 AM CDT Office Visit [facility] THREE [facility], [facility] [address] [place] [address] Tate Sullivan NP Three [facility] [address] [place] [address] Scheduled Procedures Name Priority Associated Diagnoses Date/Ti me COLONOSCOPY SCREENING Screening for colon cancer History of colon polyps 03/11/2025 10:00 AM ACCESS DIRECTOR documented as of this encounter Visit Diagnoses Not on filedocumented in this encounter Additional Health Concerns Assessment Noted Time PHQ-9 Depression Total Score: 0 02/24/20 21 9:15 AM ACCESS DIRECTOR documented as of this encounter Care Teams Mallet And Die Cutter Relationship Specialty Start Date End Date Eduard Chesetr DO [address] [place] [address] PCP - General FAMILY PRACTICE 12/26/17 Nicanor Morris MD [facility]. [facility] [address] [place] [address] [facility] CARDIOVASCULAR DISEASE 06/27/17 Bipin Rocha MD [address] [place] [address] Surgeon SURGERY 02/26/19 documented as of this encounter
--- OUTSIDE RECORDS SUMMARY | 2024-12-04 12:31 | XMS_ITS | Clinical Summary ---
Author Organization [facility] Address [address] [facility] [place] [address] Care Team Providers Care Business Computers Teacher Name Role Phone Eduard Chester Primary Care Provider + Source Comments [facility],non-owned Affiliates and Associated Physician Practices is amultiple site organization consisting of ambulatory clinics and hospital sitesin [place], [place], [place] and [place]. This disclosure is being madepursuant to the Care Everywhere program and may not contain all information available regarding this patient. Last updated 17.[facility] Allergies No known active allergies Medications * [...] to complete this topic Insurance Care Teams Business Computers Teacher Relationship Specialty Start Date End Date Eduard Chester DO [address] [place] [address] PCP - General Family Medicine Geriatric Medicine 10/02/21
--- OUTSIDE RECORDS SUMMARY | 2024-12-04 12:31 | XMS_ITS | Clinical Summary ---
Author Organization [facility] Address [address] [place] [address] Care Team Providers Care Piano Machine Operator Name Role Phone Nicanor Morris MD Unavailable [phone] Eduard Chester DO Primary Care Provider + [facility] MD Unavailable [phone] Allergies Active Allergy Reactions Criticality Noted [...] (400 mg total) by mouth daily. Active aspirin 325 MG tablet Take 1 [...] 1-2 weeks 42 g 09/01/19 25 Active Additional Information Patient not taking.Reported on 12/03/2024 rosuvastatin (CRESTOR) 10 MG tabletIndication s:Hypercholester olemia TAKE 1 TABLET DAILY 90 tablet 3 10/10/19 25 Active metoprolol succinate ER (TOPROL-XL) 100 MG 24 hr tabletIndication s:Primary hypertension Take 1 tablet (100 mg total) by mouth daily. 90 tablet 3 12/04/19 25 Active metoprolol succinate ER (TOPROL-XL) 50 MG 24 hr tabletIndication s:Essential hypertension TAKE 1 TABLET DAILY 90 tablet 3 03/13/20 24 025 Discontin ued(Dose adjustmen t) Active Problems Problem Noted Date Diagnosed Date History of colon polyps 07/12/2024 Prostate cancer ([facility]) 05/21/2024 Trigger ring finger of right hand 03/07/2024 Chest pain 03/15/2023 Paroxysmal A-fib ([facility]) 04/21/2020 BMI 30.0-30.9,adult 04/21/2020 Gastroesophageal reflux dise [...] Encounters Date Type Department Care Team Description 12/03/2024 9:40 AM CDT Office Visit [facility] Family & Internal [address] [address] Eduard Chester, DO Hypertension; Hyperlipidemia 12/03/2024 Results Follow-Up [address] [address] Eduard Chester, DO HEMOGLOBIN, GLYCOSYLATED, PROSTATE SPECIFIC ANTIGEN,TOTAL, TSH W/REFLEX, Additional followed-up results: 3 12/03/2024 Travel 11/12/2024 8:20 AM CDT Allied Health/Nurse Visit [address] [address] Eduard Chester, Allied Health Visit 11/12/2024 7:40 AM CDT Laboratory Only [address] [address] Eduard Chester DO 11/12/2024 Travel 10/25/2024 10:00 AM CDT Office Visit [address] [address] Eduard Chester, ER F/U ([facility] 10/14/2024 - dizziness, elevated BP (d/c summary viewable in chart under media)) 10/25/2024 Travel 10/14/2024 Scan HEALTH INFO SRVCS Scanned, [facility] Image (SCAN); Lab (SCAN) 10/03/2024 9:00 AM CDT Office Visit [facility] [address] [address] Nicanor Morris MD Follow Up 10/03/2024 Travel from Last 3 Months Immunizations Immunization [...] end of life Heart Disease Maternal Grandfather [place] Maternal Grandfather Stroke Maternal Grandmother Heart Disease [...] Sex Assigned at Male 05/02/2024 8:27 AM TALENT ACQUISITION CONSULTANT Legal Sex Male 8:52 AM CDT Gender [...] Mass Index 29.72 12/03/2024 9:48 AM CDT Plan of Treatment Upcoming Encounters Date Type Department Care Team (Late st Contact Info) Description 02/08/2025 8:45 AM TALENT ACQUISITION CONSULTANT Office Visit [facility], [facility] [address] [place] [address] Camilo Toledo MD Three [facility]. [facility] [address] [place] [address] 03/11/2025 10:00 AM TALENT ACQUISITION CONSULTANT Hospital Encounter [facility] [place] [address] Mu Nicholas MD [address] [facility] [address] [place] [address] 03/11/2025 10:00 AM TALENT ACQUISITION CONSULTANT - 03/11/2025 10:30 AM TALENT ACQUISITION CONSULTANT Surgery [facility] Endo/[place] [address] Mu Nicholas MD [address] [facility] [address] [place] [address] COLONOSCOPY SCREENING 06/03/2025 7:00 AM CDT Office Visit [facility] Family & Internal Medicine - [place] [address] [place] [address] Eduard Chester DO [address] [place] [address] 10/07/2025 9:15 AM CDT Office Visit [facility], [facility] [address] [place] [address] Tate Sullivan NP Three [facility] [address] [place] [address] Scheduled Procedures Name Priority Associated Diagnoses Date/Ti me COLONOSCOPY SCREENING Screening for colon cancer History of colon polyps 03/11/2025 10:00 AM TALENT ACQUISITION CONSULTANT Health Maintenance Due Date Last Done Comments COVID-19 Vaccine (2024-2 6 season) 2024 01/27/2021, 06/01/2020, 05/11/2020 RSV Immunization or 60+ Years (1 - Risk 60-74 years 1-dose series) 12/03/2025 Postponed from 10/2018 (Going to Outside Clinic) DTaP, Tdap and Td Vaccines ( 2 - Td or Tdap) 10/14/2029 10/15/2019 Colorectal Cancer Screening Colonoscopy (10 Years) 06/18/2034 06/18/2024, 03/28/2013 Zoster Vaccines Completed 09/06/2020, 03/11/2020 Pneumococcal Vaccine: 50+ Years Completed 04/26/2022, 10/15/2019 Hepatitis C Completed 05/14/2022 PHQ-2 (Physician [place]) Completed 04/06/2024 Meningococcal B Vaccine Aged Out [...] Plan Autogenerated Problem No Joycelyn Loo [employer] Implanted Type Area Vascular Technologist Sonographer Device Identifier Shelf Expiration Date Model / Serial / Lot Resolution 360 Ultra Clip Implanted:Qty : 1 on 06/18/2024 by Mu Nicholas MD at [facility] Clip Implant N/A: Colon [id number] 12/05/2026 / [id number] / [id number] Description:ASCENDING Mesh Bard Marlex 3 X 6 [id number] - [id number] Implanted:Qty : 1 on 03/05/2019 by Bipin Rocha MD at [facility] Mesh Left: Inguinal [employer] - [employer] 07/24/2023 [id number] / / [id number] Procedures Procedure Name Priority Date/Time Associated Diagnosis Comments COLLECTION VENOUS BLOOD VENIPUNCTURE Routine 11/12/2024 7:47 AM CDT Hyperlipidemia, mixed Hyperglycemia Prostate cancer (CMS/HCC HHS/HCC) Hypercholesterolemia Primary hypertension LIPID PANEL Routine 11/12/2024 7:46 AM CDT CBC W/DIFF AUTOMATED Routine 11/12/2024 7:46 AM CDT Hyperglycemia Primary hypertension COMPREHENSIVE METABOLIC PANEL Routine 11/12/2024 7:46 AM CDT Hyperglycemia Primary hypertension TSH W/REFLEX Routine 11/12/2024 7:46 AM CDT Hyperglycemia Primary hypertension PROSTATE SPECIFIC ANTIGEN,TOTAL Routine 11/12/2024 7:46 AM CDT Prostate cancer (CMS/HCC HHS/HCC) HEMOGLOBIN, GLYCOSYLATED Routine 11/12/2024 7:46 AM CDT Hyperglycemia OUTSIDE LAB (SCAN ORDER) 10/14/2024 OUTSIDE LAB (SCAN ORDER) 10/14/2024 IMAGE GENERIC 10/14/2024 HEPATITIS C ANTIBODY Routine 05/14/2022 7:52 AM TALENT ACQUISITION CONSULTANT Need for hepatitis C screening test Encounter for preventative adult health care examination COLONOSCOPY Routine 03/28/2013 12:00 AM TALENT ACQUISITION CONSULTANT from Last 3 Months or Most Recently Relevant to Health Maintenance Results * TSH W/REFLEX (11/12/2024 7:46 AM CDT) TSH 2.254 0.358 - 3.740 uIU/ML 11/12/2024 4:12 PM CDT -[facility] 11/12/2024 7:46 AM CDT us Eduard Chester DO LABORATORY Final Re sult [facility] [address] [facility] [address], [place] [phone] * (ABNORMAL) HEMOGLOBIN, GLYCOSYLATED (11/12/2024 7:46 AM CDT) HGB A1C 6.2 4.5 - 6.2 % 11/12/2024 5:37 PM CDT [facility] ESTIMATED AVG GLUCOSE 131(H) 74 - 106 MG/DL 11/12/2024 5:37 PM CDT [facility] 11/12/2024 7:46 AM CDT Eduard Chester LABORATORY Final Re sult Performing Organization Address [facility] [email or web address]] Co de Phone Number [facility] [address] [place] [address], * PROSTATE SPECIFIC ANTIGEN,TOTAL (11/12/2024 7:46 AM CDT) PSA <0.13 <4.00 NG/ML 11/12/2024 5:55 PM CDT [facility] Comment: ASSAY PERFORMED BY [employer] IMMUNOASSAY METHODOLOGY USING [employer] REAGENT. PATIENT RESULTS DETERMINED BY ASSAYS FROM DIFFERENT MANUFACTURERS AND/OR BY DIFFERENT METHODS MAY NOT BE COMPARABLE. 11/12/2024 7:46 AM CDT Eduard Chester LABORATORY Final Re sult Performing Organization Address [facility] [[email or web address]] Co de Phone Number [facility] [address] [place] [address], [place] [phone] * (ABNORMAL) COMPREHENSIVE METABOLIC PANEL (11/12/2024 7:46 AM CDT) SODIUM S/P/B 142 136 - 145 MMOL/L 11/12/2024 4:12 PM CDT [facility] POTASSIUM S/P/B 4.3 3.5 - 5.1 MMOL/L 11/12/2024 4:12 PM T [facility] CHLORIDE S/P/B 106 98 - 107 MMOL/L 11/12/2024 4:12 PM CDT [facility] CO2 26.1 21 - 32 MMOL/L 11/12/2024 4:12 PM [facility] GLUCOSE 116(H) 70 - 99 MG/DL 11/12/2024 4:12 PM CDT [facility] BUN 20(H) 7 - 18 MG/DL 11/12/2024 4:12 PM T [facility] CREATININE S/P/B 0.71 0.70 - 1.30 MG/DL 11/12/2024 4:12 PM T [facility] CALCIUM S/P/B 8.6 8.4 - 10.5 MG/DL 11/12/2024 4:12 PM T [facility] BILIRUBIN TOTAL S/P/B 0.5 0.2 - 1.0 MG/DL 11/12/2024 4:12 PM [facility] ALKALINE PHOSPHATASE S/P/B 114 45 - 115 U/L 11/12/2024 4:12 PM T [facility] AST 27 15 - 37 U/L 11/12/2024 4:12 PM CDT [facility] ALT 55 16 - 63 U/L 11/12/2024 4:12 PM CDT [facility] TOTAL PROTEIN S/P/B 6.2(L) 6.4 - 8.2 G/DL 11/12/2024 4:12 PM T [facility] ALBUMIN S/P/B 3.9 3.4 - 5.0 G/DL 11/12/2024 4:12 PM T [facility] ANION GAP 9.9 5 - 15 MMOL/L 11/12/2024 4:12 PM CDT [facility] Comment:REFERENCE RANGE NOT ESTABLISHED OSMOLALITY (CALC) 298 MOSM/KG 025 4:12 PM CDT [facility] Comment:REFERENCE RANGE NOT ESTABLISHED GFR ESTIMATE >90 >90 ML/MIN/1. 73 M2 11/12/2024 4:12 PM CDT [facility] GFR NOTES GFR REFERENCE S: 11/12/2024 4:12 PM T [facility] Comment: THE ESTIMATED GFR IS CALCULATED USING [...] ml/min/1.73 m2 G5,KIDNEY FAILURE: <15 ml/min/1.73 m2 11/12/2024 7:46 AM CDT us Eduard Chester DO LABORATORY Final Re sult [facility] [address] [place] [address], * (ABNORMAL) LIPID PANEL (11/12/2024 7:46 AM CDT) CHOLESTEROL 144 <200 MG/DL 11/12/2024 4:12 PM CDT [facility] TRIGLYCERIDES 206(H) <150 MG/DL 11/12/2024 4:12 PM CDT [facility] HDL 29(L) >40 MG/DL 11/12/2024 4:12 PM CDT [facility] LDL-C 74 <100 MG/DL 11/12/2024 4:12 PM CDT [facility] VLDL CALCULATION 41(H) 5 - 28 MG/DL 11/12/2024 4:12 PM CDT [facility] CHOL/HDL RATIO 5.0(H) 0.0 - 4.0 11/12/2024 4:12 PM CDT [facility] LDL/HDL 2.6(H) 0.41 - 2.13 11/12/2024 4:12 PM CDT [facility] NON HDL CHOLESTEROL 115 <140 MG/DL 11/12/2024 4:12 PM CDT [facility] 11/12/2024 7:46 AM CDT Eduard Chester DO LABORATORY Final Re sult [facility] [address] [place] [address], * (ABNORMAL) CBC W/DIFF AUTOMATED (11/12/2024 7:46 AM CDT) WBC 4.73 4.00 - 10.80 x10'3/uL 11/12/2024 3:54 PM CDT [facility] RBC 4.50 4.50 - 6.10 x10'6/uL 11/12/2024 3:54 PM CDT [facility] HGB 13.0 13.0 - 18.0 G/DL 11/12/2024 3:54 PM CDT [facility] HCT 39.4 37.0 - 52.0 % 11/12/2024 3:54 PM CDT [facility] MCV 87.6 78.0 - 100.0 FL 11/12/2024 3:54 PM CDT [facility] MCH 28.9 27.0 - 31.0 PG 11/12/2024 3:54 PM CDT [facility] MCHC 33.0 33.0 - 36.0 G/DL 11/12/2024 3:54 PM CDT -[facility] RDW 12.5 11.5 - 14.5 % 11/12/2024 3:54 PM CDT -[facility] PLT 182 150 - 350 x10'3/uL 11/12/2024 3:54 PM CDT [facility] MPV 11.0(H) 7.4 - 10.4 FL 11/12/2024 3:54 PM CDT [facility] DIFFERENTIAL TYPE AUTOMATED DIFFERENTIAL 11/12/2024 3:54 PM CDT [facility] NEUTROPHILS % 65.0 % 11/12/2024 3:54 PM CDT [facility] LYMPHOCYTES % 24.9 % 11/12/2024 3:54 PM CDT [facility] MONOCYTES % 7.2 % 11/12/2024 3:54 PM CDT [facility] EOSINOPHILS % 2.3 % 11/12/2024 3:54 PM CDT [facility] BASOPHILS % 0.4 % 11/12/2024 3:54 PM CDT [facility] IMMATURE GRANS % 0.2 % 11/12/2024 3:54 PM CDT [facility] ABS. NEUTROPHILS 3.07 1.60 - 8.30 x10'3/uL 11/12/2024 3:54 PM CDT [facility] ABS. LYMPHOCYTES 1.18 0.80 - 4.70 x10'3/uL 11/12/2024 3:54 PM CDT [facility] ABS. MONOCYTES 0.34 0.00 - 1.50 x10'3/uL 11/12/2024 3:54 PM CDT [facility] ABS. EOSINOPHILS 0.11 0.00 - 0.40 x10'3/uL 11/12/2024 3:54 PM CDT [facility] ABS. BASOPHILS 0.02 0.00 - 0.20 x10'3/uL 11/12/2024 3:54 PM CDT [facility] ABS. IMMATURE GRANULOCYTES 0.01 0.00 - 0.03 x10'3/uL 11/12/2024 3:54 PM CDT [facility] 11/12/2024 7:46 AM CDT Eduard Chester DO LABORATORY Final Re sult Performing Organization Address [facility]/ZIP Co de Phone Number [facility] [address] [place] [address], [place] [phone] * OUTSIDE LAB (SCAN ORDER) (10/14/2024) Only the most recent of2 resultswithin the time period is included. 10/14/2024 [facility] Scanned SCANNING Final Resu lt * IMAGE GENERIC (10/14/2024) Anatomical Region Laterality Modality Other 10/14/2024 [employer] [facility] Scanned SCANNING Final Resu lt * HEPATITIS C ANTIBODY (05/14/2022 7:52 AM TALENT ACQUISITION CONSULTANT) HEPATITIS C AB NON-REACTI VE NON-REACT FABI 05/14/2022 8:02 PM TALENT ACQUISITION CONSULTANT [facility] Comment: ANTIBODIES TO HCV NOT DETECTED. DOES NOT EXCLUDE THE POSSIBILITY OF EXPOSURE TO HCV. 05/14/2022 7:52 AM TALENT ACQUISITION CONSULTANT Eduard Chester DO LABORATORY Final Re sult [facility] [address] [place], [place] [address] [phone] [id number] * Colonoscopy (03/28/2013 12:00 AM TALENT ACQUISITION CONSULTANT) 03/28/2013 03/28/2013 Narrative [facility] TO EPIC CONVERSION - 03/28/2013 12:00 AM TALENT ACQUISITION CONSULTANT Documented hx of procedure Procedure Note Allen Hilario MD - 01/29/2018 Documented hx of procedure us Generic Conversion Md [facility] GI PROCEDURE ORDERABLES Final Result [facility] TO EPIC CONVERSION from Last 3 Months or Most Recently Relevant to Health Maintenance Additional Health Concerns Active Problems Noted Date Diagnosed Date Autogenerated Problem 07/12/2024 Insurance [email or web address] MEDICARE Advance Directives * Full Code (Latest Code Status on File) Date Activated Date Inactivated Comments 04/04/2023 11:31 AM 04/04/2023 5:38 PM * Full Code Date Activated Date Inactivated Comments 03/15/2023 3:37 AM 03/15/2023 7:25 PM * Full Code Date Activated Date Inactivated Comments 02/02/2021 2:23 PM 02/02/2021 5:26 PM Care Teams Piano Machine Operator Relationship Specialty Start Date End Date Eduard Chester DO [address] [place] [address] PCP - General FAMILY PRACTICE 12/26/17 Nicanor Morris MD [id number] [place] [address] [employer] Lumber Planer CARDIOVASCULAR DISEASE 06/27/17 Bipin Rocha MD [address] [place] [id number] Surgeon SURGERY 02/26/19
== END 2024-12-04 10:46 | disposition home or self-care (01) ==
LOC: ANHAUDIO 10:45
PROVIDERS: PCP Student in an Organized Health Care Education/Training Program; Visit Provider Otolaryngology
DX: H90.3 Sensorineural hearing loss, bilateral (principal); H93.13 Tinnitus, bilateral; R42 Dizziness and giddiness
CPT/HCPCS: 92557; 92567